=== PATIENT | female | born 1965 | race Caucasian/White ===

== ENCOUNTER → 2017-02-08 | Outpatient (REF) | payer OTHER ==
[2017-02-08 12:09] LABS: MEAN CORPUSCULAR HEMOGLOBIN 33.6 pg (27.0-33.0); MEAN CORPUSCULAR HGB CONC 33.4 g/dl (32.0-36.5); MEAN CORPUSCULAR VOLUME 100.8 fl (80.0-96.0); RED CELL DISTRIBUTION WIDTH 14.6 % (11.5-14.5); WHITE BLOOD COUNT 5.3 K/mm3 (4.0-10.0)
[2017-02-08 14:33] LABS: ALBUMIN 3.3 GM/DL (3.2-5.2); ALBUMIN/GLOBULIN RATIO 0.83 (1.00-1.93); ALKALINE PHOSPHATASE 90 U/L (45-117); ALT/SGPT 35 U/L (12-78); ANION GAP 7 MEQ/L (8-16); AST/SGOT 36 U/L (15-37); BILIRUBIN,TOTAL 0.4 MG/DL (0.2-1.0); BLOOD UREA NITROGEN 12 MG/DL (7-18); CALCIUM LEVEL 8.5 MG/DL (8.5-10.1); CARBON DIOXIDE LEVEL 23 MEQ/L (21-32); CHLORIDE LEVEL 107 MEQ/L (98-107); CHOLESTEROL LEVEL 183 MG/DL (<200); CREATININE FOR GFR 0.83 MG/DL (0.55-1.02); GLOMERULAR FILTRATION RATE > 60.0 (>51); GLUCOSE, FASTING 94 MG/DL (70-105); PERCENT SATURATION 7.5 % (13.2-37.4); POTASSIUM SERUM 4.2 MEQ/L (3.5-5.1); SODIUM LEVEL 137 MEQ/L (136-145); TOTAL IRON BINDING CAPACITY 416 UG/DL (250-450); TOTAL PROTEIN 7.3 GM/DL (6.4-8.2); TRIGLYCERIDES LEVEL 100 MG/DL (<150)
== END ==
LOC: M LABDRAW1 10:56
PROVIDERS: ATTEND Family Medicine
DX: R53.83 Other fatigue (principal); I10 Essential (primary) hypertension

== ENCOUNTER → 2020-11-05 | Outpatient (CLI) | payer BC, OTHER ==
[~2020-11-05] MED LIST: FAMO1TAB11 PO; LEVO125T4 PO; OMEP-218 PO; ONDA4TAB6 PO
[2020-11-05 18:38] LABS: BASO # 0.1 10^3/uL (0.0-0.2); BASO % 0.8 % (0.0-1.0); EOS # 0.1 10^3/uL (0.0-0.5); EOS % 0.6 % (0.0-3.0); HEMATOCRIT 41.4 % (36.0-47.0); HEMOGLOBIN 13.8 g/dl (12.0-15.5); LYMPH # 1.6 10^3/uL (1.5-5.0); LYMPH % 17.3 % (24.0-44.0); MEAN CORPUSCULAR HGB CONC 33.3 g/dl (32.0-36.5); MEAN CORPUSCULAR VOLUME 105.1 fl (80.0-96.0); MONO # 0.7 10^3/uL (0.0-0.8); MONO % 7.4 % (2.0-8.0); NEUTROPHILS # 6.8 10^3/uL (1.5-8.5); NEUTROPHILS % 73.6 % (36.0-66.0); PLATELET COUNT, AUTOMATED 351 10^3/uL (150-450); RED BLOOD COUNT 3.94 10^6/uL (4.00-5.40)
[2020-11-05 19:05] LABS: ALBUMIN 4.3 GM/DL (3.2-5.2); ALT/SGPT 33 U/L (12-78); AMYLASE 53 U/L (25-115); BILIRUBIN,TOTAL 1.3 MG/DL (0.2-1.0); BLOOD UREA NITROGEN 16 MG/DL (7-18); CALCIUM LEVEL 10.2 MG/DL (8.5-10.1); CARBON DIOXIDE LEVEL 28 MEQ/L (21-32); CHLORIDE LEVEL 98 MEQ/L (98-107); CREATININE FOR GFR 0.99 MG/DL (0.55-1.30); GLOMERULAR FILTRATION RATE > 60.0 (>51); GLUCOSE, FASTING 105 MG/DL (70-100); LIPASE 226 U/L (73-393); POTASSIUM SERUM 3.9 MEQ/L (3.5-5.1); SODIUM LEVEL 134 MEQ/L (136-145); TOTAL PROTEIN 8.4 GM/DL (6.4-8.2)
[2020-11-05 19:31] LABS: HEPATITIS B SURFACE ANTIGEN NEGATIVE (NEGATIVE)
[2020-11-05 19:53] LABS: HEPATITIS B CORE ANTIBODY IGM NEGATIVE (NEGATIVE); HEPATITIS C VIRUS ABY INDEX < 0.0 INDEX (<0.8)
[2020-11-05 19:56] LABS: HEPATITIS A ANTIBODY IGM NEGATIVE (NEGATIVE)
--- NOTE | 2020-11-06 03:32 | REP ---
INDICATION: GENERALIZED ABDOMINAL PAIN, LAB 1ST COMPARISON: None. TECHNIQUE: Upright view of the chest with supine and upright views of the abdomen and pelvis. FINDINGS: Frontal upright view of the chest demonstrates no acute cardiopulmonary process or free air below the diaphragm to suspect pneumoperitoneum. Supine and upright views of the abdomen and pelvis demonstrate nonspecific bowel gas pattern without obstruction or perforation. No organomegaly. No abnormal calcifications. Skeletal structures normal for age. IMPRESSION: Nonspecific bowel gas pattern. <Electronically signed by Adarsh Denson > 11/06/20 032
[2020-11-06 07:02] LABS: WHITE BLOOD COUNT 9.3 10^3/uL (4.0-10.0)
== END ==
LOC: M LAB 17:46
PROVIDERS: ATTEND Physician Assistant
DX: R10.84 Generalized abdominal pain (principal)

== ENCOUNTER 2020-11-06 21:02 | Inpatient (IN) | payer BC, OTHER ==
[~2020-11-06] VITALS: Ht 167.6 cm; Wt 92.9 kg
[2020-11-06] MEDS ORDERED: FAMO1TAB11 PO (21:20)
[2020-11-06] MEDS ORDERED: OMEP-218 PO (21:20)
[2020-11-06] MEDS ORDERED: LEVO125T4 PO (21:20)
[2020-11-06] MEDS ORDERED: ONDA4TAB6 PO (21:20)
[2020-11-06] MEDS ORDERED: METOCLOPRAMIDE INJ 10MG/2ML VIAL (J2765 PER 1) IV ONE (22:30)
[2020-11-06] MEDS ORDERED: NS 1,000 ML IV ONE (22:30)
[2020-11-06 22:43] LABS: BASO # 0.1 10^3/uL (0.0-0.2); BASO % 0.4 % (0.0-1.0); HEMATOCRIT 45.2 % (36.0-47.0); HEMOGLOBIN 15.5 g/dl (12.0-15.5); LYMPH # 1.4 10^3/uL (1.5-5.0); MEAN CORPUSCULAR HEMOGLOBIN 34.8 pg (27.0-33.0); MEAN CORPUSCULAR HGB CONC 34.3 g/dl (32.0-36.5); MEAN CORPUSCULAR VOLUME 101.3 fl (80.0-96.0); MONO # 0.8 10^3/uL (0.0-0.8); MONO % 6.4 % (2.0-8.0); NEUTROPHILS # 10.3 10^3/uL (1.5-8.5); NEUTROPHILS % 81.7 % (36.0-66.0); PLATELET COUNT, AUTOMATED 468 10^3/uL (150-450); RED BLOOD COUNT 4.46 10^6/uL (4.00-5.40); WHITE BLOOD COUNT 12.6 10^3/uL (4.0-10.0)
[2020-11-06 23:31] LABS: ALBUMIN 4.8 GM/DL (3.2-5.2); BILIRUBIN,DIRECT 0.4 MG/DL (0.0-0.2); BILIRUBIN,TOTAL 1.5 MG/DL (0.2-1.0); CALCIUM LEVEL 10.5 MG/DL (8.5-10.1); CREATININE FOR GFR 2.64 MG/DL (0.55-1.30); GLOMERULAR FILTRATION RATE 20.1 (>51); POTASSIUM SERUM 3.6 MEQ/L (3.5-5.1); TOTAL PROTEIN 9.6 GM/DL (6.4-8.2)
--- NOTE | 2020-11-07 01:16 | REPVR ---
PROCEDURE INFORMATION: Exam: CT Abdomen And Pelvis Without Contrast Exam date and time: 11/07/2020 12:17 AM Age: 55 years old Clinical indication: Nausea and vomiting; Additional info: Acute renal failure TECHNIQUE: Imaging protocol: Computed tomography of the abdomen and pelvis without contrast. Radiation optimization: All CT scans at this facility use at least one of these dose optimization techniques: automated exposure control; mA and/or kV adjustment per patient size (includes targeted exams where dose is matched to clinical indication); or iterative reconstruction. COMPARISON: CR Abdomen,Flat Upright,PA CHEST 11/05/2020 6:17 PM FINDINGS: Liver: Normal. No mass. Gallbladder and bile ducts: Normal. No calcified stones. No ductal dilation. Pancreas: Retroperitoneal and peripancreatic edema in the region of the pancreatic head. Remainder of the pancreas is unremarkable. No pancreatic mass is identified. No pancreatic duct dilation or peripancreatic fluid collection. Spleen: Normal. No splenomegaly. Adrenal glands: Normal. No mass. Kidneys and ureters: Normal. No hydronephrosis. Stomach and bowel: The 2nd and 3rd portions of the duodenum are dilated and thick walled with surrounding retroperitoneal edema. The stomach is unremarkable. The distal duodenum and small bowel are unremarkable. Colon is unremarkable. No bowel obstruction. Appendix: No evidence of appendicitis. Intraperitoneal space: Unremarkable. No free air. No significant fluid collection. Vasculature: Unremarkable. No abdominal aortic aneurysm. Lymph nodes: Unremarkable. No enlarged lymph nodes. Urinary bladder: Unremarkable as visualized. Reproductive: Unremarkable as visualized. Bones/joints: Unremarkable. No acute fracture. Soft tissues: Unremarkable. IMPRESSION: 1. Dilated thick-walled duodenum. Finding may be due to an infectious or inflammatory duodenitis, duodenal diverticulitis, or underlying pathology. Evaluation is limited without intraluminal contrast. Follow-up CT with enteric contrast may be beneficial. 2. No bowel obstruction. 3. Peripancreatic edema may be related to acute pancreatitis versus inflammation secondary to the adjacent duodenum. Electronically signed by: Landon Rosario On 11/07/2020 01:16:38 AM
--- NOTE | 2020-11-07 03:02 | HPEPDOC ---
[facility] Medical History & Physical Date of Admission Nov 07, 2020 Date of Service: Nov 07, 2020 History and Physical CHIEF COMPLAINT: Nausea and vomiting HISTORY OF PRESENT ILLNESS: 55-year-old female history of hypothyroidism started having symptoms of nausea vomiting and diarrhea on Wednesday. She went to the urgent care yesterday blood work was unrevealing and she was given oral Zofran. She was unable to keep it down her nausea and vomiting persisted and were associated with poor appetite including poor fluid intake. She tells me that her diarrhea only lasted one day however her nausea and vomiting have not improved. She has no sick contacts at home. She presented to the emergency department due to her intractable nausea and vomiting. In the emergency department CT of the abdomen/pelvis shows inflammation consistent with viral enteritis. She was also found to have acute kidney injury suspected to be from dehydration. Patient will be admitted to the medical service for management of intractable nausea and vomiting IV fluid hydration as well as acute kidney injury. On review of systems patient tells me she doesn't have any chest pain or shortness of breath. She denies any abdominal pain however she does endorse a history of gassiness but this is not new. She denies dysuria. Denies actively having diarrhea. PAST MEDICAL/SURGICAL HISTORY: Hypothyroidism GERD History of D&C SOCIAL HISTORY: Denies alcohol use Daily smoker smokes approximately half a pack per day. Denies illicit drug use FAMILY HISTORY: Reviewed and none contributory to this admission ALLERGIES: Please see below. REVIEW OF SYSTEMS: 10 point review of systems complete all negative otherwise stated in HPI HOME MEDICATIONS: Please see below. PHYSICAL EXAMINATION: Constitutional: Awake and alert, in no apparent distress ENT: Sclera are clear. Mucosa is moist. Respiratory: Lungs CTA bilaterally. No respiratory distress. Cardiovascular: RRR S1 and S2 are normal Gastrointestinal: Abdomen is soft, non distended, non tender, BS present. Musculoskeletal: No lower extremity edema. Neurologic: No focal neurological deficit. Mental Status: A&O x3, normal affect Skin: Warm, dry LABORATORY DATA: See below. IMAGING: CT Abdomen/pelvis w/o contrast 11/07/20 IMPRESSION: 1. Dilated thick-walled duodenum. Finding may be due to an infectious or inflammatory duodenitis, duodenal diverticulitis, or underlying pathology. Evaluation is limited without intraluminal contrast. Follow-up CT with enteric contrast may be beneficial. 2. No bowel obstruction. 3. Peripancreatic edema may be related to acute pancreatitis versus inflammation secondary to the adjacent duodenum. MICROBIOLOGY: Please see below. ASSESSMENT/PLAN 55-year-old female history of hypothyroidism Speck said to have viral gastroenteritis with intractable nausea and vomiting on to have an LENIN. Admitted for IV fluid hydration and N/V control as well as management of LENIN. # Suspected Viral Gastroenteritis - Mostly likely diagnosis consists of symptoms of nausea, vomiting and diarrhea. - Abdominal CT shows: "Dilated thick-walled duodenum. May be due to an infectious or inflammatory duodenitis, duodenal diverticulitis. Peripancreatic edema may be related to acute pancreatitis versus inflammation secondary to the adjacent duodenum." - Lipase 318 upper limits of normal in the absence of abdominal pain - Zofran PRN n/v, Reglan scheduled. protonix IV - Fu GI panel - IVFs NS - Diet as tolerated #LENIN: Cr 2.64. Likely prerenal secondary to dehydration and GI loss. Fu FeNa. IVFs NS. Trend BMP. Avoid nephrotoxins. # Hypothyroidism: resume Synthroid. # GERD: protonix. # DVT prophylaxis: Heparin A Yousef Hospitalist Vital Signs Vital Signs Date Time Temp Pulse Resp B/P (MAP) Pulse Ox O2 Delivery O2 Flow Rate FiO2 11/07/20 02:17 97 94 11/07/20 02:15 127/92 (104) 11/06/20 21:03 96.2 20 Room Air Laboratory Data Labs 24H Laboratory Tests 2 11/06/20 22:37: Immature Granulocyte % (Auto) 0.5, Neutrophils (%) (Auto) 81.7H, Lymphocytes (%) (Auto) 11.0L, Monocytes (%) (Auto) 6.4, Eosinophils (%) (Auto) 0.0, Basophils (%) (Auto) 0.4, Neutrophils # (Auto) 10.3H, Lymphocytes # (Auto) 1.4L, Monocytes # (Auto) 0.8, Eosinophils # (Auto) 0.0, Basophils # (Auto) 0.1, Nucleated Red Blood Cells % (auto) 0.0, Anion Gap 18H, Glomerular Filtration Rate 20.1L, Calcium Level 10.5H, Total Bilirubin 1.5H, Direct Bilirubin 0.4H, Aspartate Amino Transf (AST/SGOT) 33, Alanine Aminotransferase (ALT/SGPT) 34, Alkaline Phosphatase 149H, Total Protein 9.6H, Albumin 4.8, Albumin/Globulin Ratio 1.0L, Lipase 318 11/07/20 00:48: Urine Color KADY, Urine Appearance TURBIDH, Urine pH 5.0, Urine Specific Gravit y 1.021, Urine Protein 2+H, Urine Glucose (UA) NEGATIVE, Urine Ketones TRACEH, Urine Blood 1+H, Urine Nitrite NEGATIVE, Urine Bilirubin 1+H, Urine Urobilinogen 2.0H, Urine Leukocyte Esterase NEGATIVE, Urine WBC (Auto) 8H, Urine RBC (Auto) 6H, Urine Hyaline Casts (Auto) 62, Urine Bacteria (Auto) 2+H, Urine Squamous Epithelial Cells 10, Urine Mucus (Auto) SMALL, Urine Sperm (Auto) CBC/BMP Laboratory Tests 11/06/20 22:37 Microbiology Microbiology 11/06/20 Respiratory Virus Panel (PCR) ([facility]) - Final, Complete Home Medications Scheduled Famotidine (Famotidine) 20 Mg Tablet, 20 MG PO DAILY Levothyroxine Sodium (Levothyroxine Sodium) 125 Mcg Tablet, 125 MCG PO DAILY Omeprazole (Omeprazole) 20 Mg Capsule.dr, 20 MG PO BID Scheduled PRN Ondansetron (Ondansetron Odt) 4 Mg Tab.rapdis, 4 MG PO Q6H PRN for NAUSEA OR VOMITING Allergies Coded Allergies: No Known Allergies (Unverified , 11/06/20) A-FIB/CHADSVASC A-FIB History Current/History of A-Fib/PAF?: No KLAUSSERD Rick MD Nov 07, 2020 03:01
[2020-11-07] MEDS ORDERED: MOM 30ML SUSPENSION UDC PO PRN (03:15)
[2020-11-07] MEDS ORDERED: ACETAMINOPHEN TAB 650MG DOSE (2X325MG) PO PRN (03:15)
[2020-11-07] MEDS ORDERED: MAALOX 30 ML SUSP *UDC PO PRN (03:15)
[2020-11-07] MEDS ORDERED: LORazepam 2 MG TAB PO PRN (03:40)
[2020-11-07] MEDS: NS 1,000 ML IV SCH ×2 (04:00→13:30)
[2020-11-07] MEDS: THIAMINE 100 MG TAB PO SCH ×2 (04:00→21:36)
[2020-11-07] MEDS: METOCLOPRAMIDE INJ 10MG/2ML VIAL (J2765 PER 1) IV SCH ×2 (06:38→23:28)
[2020-11-07] MEDS ORDERED: PANTOPRAZOLE 40MG VIAL (C9113 PER 1) IV SCH (09:00)
[2020-11-07] MEDS ORDERED: DOCUSATE SODIUM 100MG CAPSULE PO SCH (09:00)
[2020-11-07] MEDS: MULTIVITAMINS/MINERALS THERAP 1 TAB PO SCH (09:00)
[2020-11-07 09:20] VITALS: BP 121/87
[2020-11-07 09:53] LABS: HEMATOCRIT 42.4 % (36.0-47.0); HEMOGLOBIN 14.5 g/dl (12.0-15.5); MEAN CORPUSCULAR HEMOGLOBIN 34.3 pg (27.0-33.0); MEAN CORPUSCULAR HGB CONC 34.2 g/dl (32.0-36.5); MEAN CORPUSCULAR VOLUME 100.2 fl (80.0-96.0); PLATELET COUNT, AUTOMATED 396 10^3/uL (150-450); RED BLOOD COUNT 4.23 10^6/uL (4.00-5.40); WHITE BLOOD COUNT 11.2 10^3/uL (4.0-10.0)
[2020-11-07 10:00] VITALS: BP 121/87
[2020-11-07 10:34] LABS: CREATININE FOR GFR 3.15 MG/DL (0.55-1.30); GLOMERULAR FILTRATION RATE 16.4 (>51); POTASSIUM SERUM 3.7 MEQ/L (3.5-5.1)
[2020-11-07] MEDS: LEVOTHYROXINE 100MCG (0.1MG) VIAL IV SCH (10:46)
[2020-11-07] MEDS: HEPARIN SOD (PORCINE) 5000UNITS/ML 1ML VIAL/SYRINGE SC SCH ×2 (10:47→21:36)
[2020-11-07] MEDS: FOLIC ACID 1 MG TAB PO SCH (12:06)
[2020-11-07] MEDS: ONDANSETRON 4MG/2ML VIAL IV PRN ×2 (13:30→20:18)
[2020-11-07] MEDS ORDERED: NS 1,000 ML IV ONE (13:45)
[2020-11-07 14:00] VITALS: BP 121/87
--- NOTE | 2020-11-07 17:57 | IPNPDOC ---
Subjective Date Seen The patient was seen on 11/07/20. Subjective Chief Complaint/HPI Continues to have nausea and vomiting. No abdominal pain or diarrhea. Objective Physical Examination General Exam: Positive: Alert, Cooperative, No Acute Distress Eye Exam: Positive: PERRLA, Conjunctiva & lids normal, EOMI; Negative: Sclera icteric ENT Exam: Positive: Atraumatic, Mucous membr. moist/pink, Pharynx Normal Neck Exam: Positive: Supple; Negative: JVD, thyromegaly Chest Exam: Positive: Clear to auscultation, Normal air movement Heart Exam: Positive: Rate Normal, Regular Rhythm, Normal S1, Normal S2; Negative: Murmurs, Rubs Abdomen Exam: Positive: BS Hyperactive, Soft; Negative: Tenderness, Hepatospenomegaly Extremity Exam: Negative: Clubbing, Cyanosis, Edema Skin Exam: Positive: Nl turgor and temperature; Negative: Rash, Breakdown Neuro Exam: Positive: Normal Speech, Strength at 5/5 X4 ext, Normal Tone Psych Exam: Positive: Memory Intact, Oriented x 3 Assessment /Plan Assessment 55-year-old female history of hypothyroidism, daily alcohol use presented to ED with nausea, vomiting for 4 days unable to keep anything down. No diarrhea. In fact she is contipatedCT Abdomen/pelvis w/o contrast 11/07/20 showed Dilated thick-walled duodenum. Finding may be due to an infectious or inflammatory duodenitis, duodenal diverticulitis, or underlying pathology. Evaluation is limited without intraluminal contrast. Follow-up CT with enteric contrast may be beneficial. No bowel obstruction. Peripancreatic edema may be related to acute pancreatitis versus inflammation secondary to the adjacent duodenum. She was found to have dehydration, LENIN. She is felt to have viral gastroenteritis with dehydration and LENIN. Suspected Viral Gastroenteritis Vs Acute gastritis continue IVF. diet as tolerated, zofran and metoclopramide PPI bid. LENIN Likely prerenal secondary to dehydration and GI loss. continue IVF. Hypothyroidism Synthroid. GERD protonix. DVT prophylaxis Heparin Plan/VTE VTE Prophylaxis Ordered?: Yes VS, I&O, 24H, Fishbone Vital Signs/I&O Vital Signs Date Time Temp Pulse Resp B/P (MAP) Pulse Ox O2 Delivery O2 Flow Rate FiO2 11/07/20 09:20 98.0 94 18 121/87 (98) 98 Room Air Laboratory Data 24H LABS Laboratory Tests 2 11/06/20 22:37: Immature Granulocyte % (Auto) 0.5, Neutrophils (%) (Auto) 81.7H, Lymphocytes (%) (Auto) 11.0L, Monocytes (%) (Auto) 6.4, Eosinophils (%) (Auto) 0.0, Basophils (%) (Auto) 0.4, Neutrophils # (Auto) 10.3H, Lymphocytes # (Auto) 1.4L, Monocytes # (Auto) 0.8, Eosinophils # (Auto) 0.0, Basophils # (Auto) 0.1, Nucleated Red Blood Cells % (auto) 0.0, Anion Gap 18H, Glomerular Filtration Rate 20.1L, Calcium Level 10.5H, Total Bilirubin 1.5H, Direct Bilirubin 0.4H, Aspartate Amino Transf (AST/SGOT) 33, Alanine Aminotransferase (ALT/SGPT) 34, Alkaline Phosphatase 149H, Total Protein 9.6H, Albumin 4.8, Albumin/Globulin Ratio 1.0L, Lipase 318 11/07/20 00:48: Urine Color KADY, Urine Appearance TURBIDH, Urine pH 5.0, Urine Specific Lewis 1.021, Urine Protein 2+H, Urine Glucose (UA) NEGATIVE, Urine Ketones TRACEH, Urine Blood 1+H, Urine Nitrite NEGATIVE, Urine Bilirubin 1+H, Urine Urobilinogen 2.0H, Urine Leukocyte Esterase NEGATIVE, Urine WBC (Auto) 8H, Urine RBC (Auto) 6H, Urine Hyaline Casts (Auto) 62, Urine Bacteria (Auto) 2+H, Urine Squamous Epithelial Cells 10, Urine Mucus (Auto) SMALL, Urine Sperm (Auto) 11/07/20 09:36: Nucleated Red Blood Cells % (auto) 0.0, Anion Gap 15, Glomerular Filtration Rate 16.4L, Calcium Level 10.0, Thyroid Stimulating Hormone (TSH) 35.000H CBC/BMP Laboratory Tests 11/06/20 22:37 11/07/20 09:36 Microbiology Microbiology 11/06/20 Respiratory Virus Panel (PCR) ([facility]) - Final, Complete JEAN CARLOS ACEVEDO MD Nov 07, 2020 12:46
[2020-11-07 19:31] VITALS: BP 121/87
[2020-11-07] MEDS: PANTOPRAZOLE 40MG VIAL (C9113 PER 1) IV SCH (21:36)
[2020-11-07 22:00] VITALS: BP 116/74
[2020-11-08] MEDS: NS 1,000 ML IV SCH ×2 (02:09→09:35)
[2020-11-08 06:00] VITALS: BP 118/76
[2020-11-08] MEDS: METOCLOPRAMIDE INJ 10MG/2ML VIAL (J2765 PER 1) IV SCH (06:41)
[2020-11-08 08:05] VITALS: BP 120/80
[2020-11-08 08:36] LABS: BASO % 0.5 % (0.0-1.0); EOS % 0.3 % (0.0-3.0); HEMATOCRIT 35.7 % (36.0-47.0); HEMOGLOBIN 11.6 g/dl (12.0-15.5); LYMPH # 1.2 10^3/uL (1.5-5.0); LYMPH % 15.8 % (24.0-44.0); MEAN CORPUSCULAR HEMOGLOBIN 34.3 pg (27.0-33.0); MEAN CORPUSCULAR HGB CONC 32.5 g/dl (32.0-36.5); MEAN CORPUSCULAR VOLUME 105.6 fl (80.0-96.0); MONO # 0.7 10^3/uL (0.0-0.8); MONO % 9.1 % (2.0-8.0); NEUTROPHILS # 5.8 10^3/uL (1.5-8.5); NEUTROPHILS % 73.9 % (36.0-66.0); PLATELET COUNT, AUTOMATED 298 10^3/uL (150-450); RED BLOOD COUNT 3.38 10^6/uL (4.00-5.40); WHITE BLOOD COUNT 7.8 10^3/uL (4.0-10.0)
[2020-11-08 08:42] LABS: CALCIUM LEVEL 8.9 MG/DL (8.5-10.1); CREATININE FOR GFR 1.11 MG/DL (0.55-1.30); GLOMERULAR FILTRATION RATE 54.5 (>51); POTASSIUM SERUM 3.5 MEQ/L (3.5-5.1)
[2020-11-08] MEDS: HEPARIN SOD (PORCINE) 5000UNITS/ML 1ML VIAL/SYRINGE SC SCH ×2 (09:35→23:01)
[2020-11-08] MEDS: THIAMINE 100 MG TAB PO SCH ×2 (09:35→20:18)
[2020-11-08] MEDS: MULTIVITAMINS/MINERALS THERAP 1 TAB PO SCH (09:35)
[2020-11-08] MEDS: FOLIC ACID 1 MG TAB PO SCH (09:35)
[2020-11-08] MEDS: PANTOPRAZOLE 40MG VIAL (C9113 PER 1) IV SCH ×2 (09:36→23:01)
[2020-11-08] MEDS: LEVOTHYROXINE 100MCG (0.1MG) VIAL IV SCH (09:36)
--- NOTE | 2020-11-08 09:53 | IPNPDOC ---
Subjective Date Seen The patient was seen on 11/08/20. Subjective Chief Complaint/HPI continues to be nauseous still can only take few sips of liquids. Had vomiting last night. No abdominal pain . No bowel movement yet. Objective Physical Examination General Exam: Positive: Alert, Cooperative, No Acute Distress Eye Exam: Positive: PERRLA, Conjunctiva & lids normal, EOMI; Negative: Sclera icteric ENT Exam: Positive: Atraumatic, Mucous membr. moist/pink, Pharynx Normal Neck Exam: Positive: Supple; Negative: JVD, thyromegaly Chest Exam: Positive: Clear to auscultation, Normal air movement Heart Exam: Positive: Rate Normal, Regular Rhythm, Normal S1, Normal S2; Negative: Murmurs, Rubs Abdomen Exam: Positive: Normal bowel sounds, Soft; Negative: Tenderness, Hepatospenomegaly Extremity Exam: Negative: Clubbing, Cyanosis, Edema Neuro Exam: Positive: Normal Speech, Strength at 5/5 X4 ext, Normal Tone Psych Exam: Positive: Memory Intact, Oriented x 3 Assessment /Plan Assessment 55-year-old female history of hypothyroidism, daily alcohol use presented to ED with nausea, vomiting for 4 days unable to keep anything down. No diarrhea. In fact she is contipatedCT Abdomen/pelvis w/o contrast 11/07/20 showed Dilated thick-walled duodenum. Finding may be due to an infectious or inflammatory duodenitis, duodenal diverticulitis, or underlying pathology. Evaluation is limited without intraluminal contrast. Follow-up CT with enteric contrast may be beneficial. No bowel obstruction. Peripancreatic edema may be related to acute pancreatitis versus inflammation secondary to the adjacent duodenum. She was found to have dehydration, LENIN. She is felt to have viral gastroenteritis with dehydration and LENIN. Suspected Viral Gastroenteritis Vs Acute gastritis VS duodenal obstruction. CT shows dilated duodenum with duodenal wall thickening. NPO diet, zofran and compazine consult GI. will likely need EGD. PPI bid. IVF. FS [id number]. LENIN Likely prerenal secondary to dehydration and GI loss. resolved Hypothyroidism Synthroid. GERD protonix. DVT prophylaxis Heparin Plan/VTE VTE Prophylaxis Ordered?: Yes VS, I&O, 24H, Fishbone Vital Signs/I&O Vital Signs Date Time Temp Pulse Resp B/P (MAP) Pulse Ox O2 Delivery O2 Flow Rate FiO2 11/08/20 06:00 97.4 76 17 118/76 (90) 94 Room Air I&O- Last 24 Hours up to 6 AM0 11/08/20 06:00 Intake Total 6190 ml Output Total 1850 ml Balance 4340 ml Laboratory Data 24H LABS Laboratory Tests 2 11/07/20 19:13: Urine Random Creatinine 337.0, Urine Random Total Protein 47.0H 11/08/20 08:02: Immature Granulocyte % (Auto) 0.4, Neutrophils (%) (Auto) 73.9H, Lymphocytes (%) (Auto) 15.8L, Monocytes (%) (Auto) 9.1H, Eosinophils (%) (Auto) 0.3, Basophils (%) (Auto) 0.5, Neutrophils # (Auto) 5.8, Lymphocytes # (Auto) 1.2L, Monocytes # (Auto) 0.7, Eosinophils # (Auto) 0.0, Basophils # (Auto) 0.0, Nucleated Red Blood Cells % (auto) 0.0, Anion Gap 7L, Glomerular Filtration Rate 54.5, Calcium Level 8.9 CBC/BMP Laboratory Tests 11/08/20 08:02 Microbiology Microbiology 11/06/20 Respiratory Virus Panel (PCR) ([facility]) - Final, Complete JEAN CARLOS ACEVEDO MD Nov 08, 2020 09:45
[2020-11-08] MEDS ORDERED: ONDANSETRON 4 MG ORAL DISINTEGRATING TAB SL SCH (12:00)
[2020-11-08] MEDS ORDERED: METOCLOPRAMIDE INJ 10MG/2ML VIAL (J2765 PER 1) IV PRN (13:00)
[2020-11-08 14:00] VITALS: BP 124/77
[2020-11-08] MEDS ORDERED: BISACODYL 10 MG SUPP PR ONE (16:35)
[2020-11-08] MEDS: ONDANSETRON 4MG/2ML VIAL IV SCH (18:08)
[2020-11-08 22:00] VITALS: BP 129/76
[2020-11-08] MEDS: PROCHLORPERAZINE 10MG/2ML VIAL (J0780 PER 1) IV PRN (23:01)
[2020-11-08] MEDS ORDERED: NS 500 ML IV ONE (23:10)
[2020-11-09] MEDS: ONDANSETRON 4MG/2ML VIAL IV SCH ×5 (00:46→17:20)
[2020-11-09 06:00] VITALS: BP 110/72
[2020-11-09 06:04] LABS: BASO % 0.3 % (0.0-1.0); EOS % 0.3 % (0.0-3.0); HEMATOCRIT 36.5 % (36.0-47.0); HEMOGLOBIN 11.9 g/dl (12.0-15.5); LYMPH # 1.2 10^3/uL (1.5-5.0); LYMPH % 19.3 % (24.0-44.0); MEAN CORPUSCULAR HEMOGLOBIN 34.1 pg (27.0-33.0); MEAN CORPUSCULAR HGB CONC 32.6 g/dl (32.0-36.5); MEAN CORPUSCULAR VOLUME 104.6 fl (80.0-96.0); MONO # 0.6 10^3/uL (0.0-0.8); MONO % 10.2 % (2.0-8.0); NEUTROPHILS # 4.2 10^3/uL (1.5-8.5); NEUTROPHILS % 69.6 % (36.0-66.0); PLATELET COUNT, AUTOMATED 290 10^3/uL (150-450); RED BLOOD COUNT 3.49 10^6/uL (4.00-5.40); WHITE BLOOD COUNT 6.1 10^3/uL (4.0-10.0)
[2020-11-09 06:24] LABS: BLOOD UREA NITROGEN 24 MG/DL (7-18); CALCIUM LEVEL 9.2 MG/DL (8.5-10.1); CARBON DIOXIDE LEVEL 27 MEQ/L (21-32); CHLORIDE LEVEL 105 MEQ/L (98-107); CREATININE FOR GFR 0.81 MG/DL (0.55-1.30); GLOMERULAR FILTRATION RATE > 60.0 (>51); GLUCOSE, FASTING 89 MG/DL (70-100); POTASSIUM SERUM 3.2 MEQ/L (3.5-5.1); SODIUM LEVEL 137 MEQ/L (136-145)
--- NOTE | 2020-11-09 07:49 | IPNPDOC ---
Subjective Date Seen The patient was seen on 11/09/20. Subjective Chief Complaint/HPI Has some nausea intermittently. Had a vomiting last night. Has some crampy abdominal pain intermittently. Passing small amount of flatus . No bowel movement. Objective Physical Examination General Exam: Positive: Alert, Cooperative, No Acute Distress Eye Exam: Positive: PERRLA, Conjunctiva & lids normal, EOMI; Negative: Sclera icteric ENT Exam: Positive: Atraumatic, Mucous membr. moist/pink, Pharynx Normal Neck Exam: Positive: Supple; Negative: JVD, thyromegaly Chest Exam: Positive: Clear to auscultation, Normal air movement Heart Exam: Positive: Rate Normal, Regular Rhythm, Normal S1, Normal S2; Negative: Murmurs, Rubs Abdomen Exam: Positive: BS Hypoactive, Soft; Negative: Tenderness, Hepatospenomegaly Extremity Exam: Negative: Clubbing, Cyanosis, Edema Neuro Exam: Positive: Normal Speech, Strength at 5/5 X4 ext, Normal Tone Psych Exam: Positive: Memory Intact, Oriented x 3 Assessment /Plan Assessment 55-year-old female history of hypothyroidism, daily alcohol use presented to ED with nausea, vomiting for 4 days unable to keep anything down. No diarrhea. In fact she is contipatedCT Abdomen/pelvis w/o contrast 11/07/20 showed Dilated thick-walled duodenum. Finding may be due to an infectious or inflammatory duodenitis, duodenal diverticulitis, or underlying pathology. Evaluation is limited without intraluminal contrast. Follow-up CT with enteric contrast may be beneficial. No bowel obstruction. Peripancreatic edema may be related to acute pancreatitis versus inflammation secondary to the adjacent duodenum. She was found to have dehydration, LENIN. She was admitted for viral gastroenteritis with dehydration and LENIN. Her inflammation is localized at the Duodenum with duodenal wall thickening so i think she could have a duodenal ulcer with stricture vs a Duodenal mass. Have consulted GI for possible EGD. Duodenitis VS duodenal obstruction with a mass vs duodenal stricture CT shows dilated duodenum with duodenal wall thickening. NPO diet, zofran and compazine consulted GI. will likely need EGD. PPI bid. IVF. FS [id number]. Acute pancreatitis as seen in CT abdomen though lipase on admission was normal . patient came several days after the starting of symptoms. does have h/o significant alcohol intake will continue with IVF, npo, antiemetics. hypokalemia will change IVF with K addition to it. LENIN Likely prerenal secondary to dehydration and GI loss. resolved Hypothyroidism TSH remains elevated. her PMD is adjusting the meds. Will continue with home meds for now. Synthroid. GERD protonix. Significant Alcohol use 2 drinks during weak days and 4 to 6 drinks on lew wekk ends. Mixed drinks. Did not have any signs of alcohol withdrawal CIWA discontinued. DVT prophylaxis Heparin Plan/VTE VTE Prophylaxis Ordered?: Yes VS, I&O, 24H, Fishbone Vital Signs/I&O Vital Signs Date Time Temp Pulse Resp B/P (MAP) Pulse Ox O2 Delivery O2 Flow Rate FiO2 11/09/20 06:00 97.4 83 19 110/72 (85) 97 Room Air I&O- Last 24 Hours up to 6 AM 11/09/20 06:00 Intake Total 1295 ml Output Total 1200 ml Balance 95 ml Laboratory Data 24H LABS Laboratory Tests 2 11/08/20 08:02: Immature Granulocyte % (Auto) 0.4, Neutrophils (%) (Auto) 73.9H, Lymphocytes (%) (Auto) 15.8L, Monocytes (%) (Auto) 9.1H, Eosinophils (%) (Auto) 0.3, Basophils (%) (Auto) 0.5, Neutrophils # (Auto) 5.8, Lymphocytes # (Auto) 1.2L, Monocytes # (Auto) 0.7, Eosinophils # (Auto) 0.0, Basophils # (Auto) 0.0, Nucleated Red Blood Cells % (auto) 0.0, Anion Gap 7L, Glomerular Filtration Rate 54.5, Calcium Level 8.9 11/09/20 05:34: Immature Granulocyte % (Auto) 0.3, Neutrophils (%) (Auto) 69.6H, Lymphocytes (%) (Auto) 19.3L, Monocytes (%) (Auto) 10.2H, Eosinophils (%) (Auto) 0.3, Basophils (%) (Auto) 0.3, Neutrophils # (Auto) 4.2, Lymphocytes # (Auto) 1.2L, Monocytes # (Auto) 0.6, Eosinophils # (Auto) 0.0, Basophils # (Auto) 0.0, Nucleated Red Blood Cells % (auto) 0.0, Anion Gap 5L, Glomerular Filtration Rate > 60.0, Calcium Level 9.2 CBC/BMP Laboratory Tests 11/08/20 08:02 11/09/20 05:34 Microbiology Microbiology 11/06/20 Respiratory Virus Panel (PCR) ([facility]) - Final, Complete JEAN CARLOS ACEVEDO MD Nov 09, 2020 07:49
[2020-11-09] MEDS ORDERED: fentaNYL 100 MCG/2 ML INJECTION (J3010) As Ordered ONE (08:40)
[2020-11-09] MEDS: LEVOTHYROXINE 100MCG (0.1MG) VIAL IV SCH (09:16)
[2020-11-09] MEDS: PANTOPRAZOLE 40MG VIAL (C9113 PER 1) IV SCH ×2 (09:16→22:27)
[2020-11-09] MEDS: KCL 20MEQ IN D5/NS 1000ML 1,000 ML IV SCH (09:17)
[2020-11-09] MEDS ORDERED: propofoL 200 MG/20 ML VIAL As Ordered ONE (10:47)
--- NOTE | 2020-11-09 11:14 | ROOR ---
Patient Name: Rama Valderrama Procedure Date: 11/09/2020 9:59 AM Date of : 1965 Age: 55 Room: Main OR Gender: Female Note Status: Finalized Procedure: Upper GI endoscopy Indications: Abnormal CT of the GI tract Providers: Matthew Stevens MD Referring MD: 2. Inpatient 2. Inpatient, Jorgito Ritter Md Requesting Provider: Medicines: Monitored Anesthesia Care Complications: No immediate complications. Procedure: Pre-Anesthesia Assessment: - Prior to the procedure, a History and Physical was performed, and patient medications and allergies were reviewed. The patient is competent. The risks and benefits of the procedure and the sedation options and risks were discussed with the patient. All questions were answered and informed consent was obtained. Patient identification and proposed procedure were verified by the physician, the nurse and the anesthesiologist in the procedure room. Mental Status Examination: normal. Airway Examination: normal oropharyngeal airway and neck mobility. Respiratory Examination: clear to auscultation. CV Examination: normal. Prophylactic Antibiotics: The patient does not require prophylactic antibiotics. Prior Anticoagulants: The patient has taken no previous anticoagulant or antiplatelet agents. ASA Grade Assessment: II - A patient with mild systemic disease. After reviewing the risks and benefits, the patient was deemed in satisfactory condition to undergo the procedure. The anesthesia plan was to use monitored anesthesia care (MAC). Immediately prior to administration of medications, the patient was re-assessed for adequacy to receive sedatives. The heart rate, respiratory rate, oxygen saturations, blood pressure, adequacy of pulmonary ventilation, and response to care were monitored throughout the procedure. The physical status of the patient was re-assessed after the procedure. The Endoscope was introduced through the mouth, and advanced to the second part of duodenum. The Colonoscope was introduced through the mouth, and advanced to the fourth part of duodenum. The upper GI endoscopy was accomplished without difficulty. The patient tolerated the procedure well. Findings: LA Grade D (one or more mucosal breaks involving at least 75% of esophageal circumference) esophagitis with no bleeding was found in the lower third of the esophagus. A small hiatal hernia was present. Excessive fluid was found in the gastric fundus and in the gastric body. Fluid aspiration was performed. Gastric lumen appears distended. ( possible outflow limitation) An acquired extrinsic severe stenosis was found in the second portion of the duodenum and in the third portion of the duodenum and was traversed. ( this stenosis is traversed after changing regular EGD to Ultra thin scope). No mucoal ulceration noted. Impression: - LA Grade D reflux esophagitis. - Small hiatal hernia. - Excessive gastric fluid. Fluid aspiration performed. - Acquired duodenal stenosis. Recommendation: - Patient has a contact number available for emergencies. The signs and symptoms of potential delayed complications were discussed with the patient. Return to normal activities tomorrow. Written discharge instructions were provided to the patient. - Clear liquid diet. - Use sucralfate suspension 1 gram PO BID for 4 weeks. - Change all oral medications to liquid formulations if possible. - Perform CT scan (computed tomography) of the abdomen with contrast ( pancreatic protocol) when the renal functions improve/ stable. - Refer to a surgeon if symptoms persist and based on the above CT scan results. - Perform a colonoscopy within 3 months for screening ( patient never had prior screening Colonoscopy). - Return to GI clinic in [facility] (address [address], [address], [place] [address]) in 4 -- 6 weeks. Please call GI clinic @ [phone] for apppointment date and time. - Return to primary care physician. Procedure Code(s): --- Professional --- 86137, Esophagogastroduodenoscopy, flexible, transoral; diagnostic, including collection of specimen(s) by brushing or washing, when performed (separate procedure) Diagnosis Code(s): --- Professional --- K21.0, Gastro-esophageal reflux disease with esophagitis K44.9, Diaphragmatic hernia without obstruction or gangrene K31.5, Obstruction of duodenum R93.3, Abnormal findings on diagnostic imaging of other parts of digestive tract CPT copyright 2019 [employer]. All rights reserved. The codes documented in this report are preliminary and upon pleater hand review may be revised to meet current compliance requirements. Matthew Stevens MD Matthew Stevens MD 11/09/2020 11:15:34 AM Electronically signed by Matthew Stevens MD Number of Addenda: 0 Note Initiated On: 11/09/2020 9:59 AM Estimated Blood Loss: Estimated blood loss: none.
[2020-11-09 11:25] VITALS: BP 111/67
[2020-11-09] MEDS ORDERED: ONDANSETRON 4MG/2ML VIAL IV PRN (11:45)
[2020-11-09] MEDS: SUCRALFATE SUSP 1GM/10ML UD PO SCH ×3 (12:11→22:27)
[2020-11-09 14:00] VITALS: BP 122/78
[2020-11-09] MEDS ORDERED: ISOVUE-370 76% 100ML VIAL As Ordered ONE (15:43)
--- NOTE | 2020-11-09 18:08 | REP ---
INDICATION: pancreatic protocol COMPARISON: 11/07/2020. TECHNIQUE: CT Scan of the abdomen was performed with intravenous administration of 100 cc of Isovue 370, without oral contrast. FINDINGS: Lung bases: Unremarkable. Liver: Normal Gallbladder: Contracted. Spleen: Normal. Adrenals: Normal. Pancreas: Normal. Kidneys: Normal. Small and large bowel: The descending and transverse portions of the duodenum appear diffusely thickened. Adjacent to the junction of these 2 portions of the duodenum there is ill-defined heterogeneous hypodensity measuring about 7 x 4 cm, along the anterolateral aspect, which may represent complex fluid. The periphery mildly enhances. I suspect the findings represent inflammatory change and duodenitis, with paraduodenal phlegmonous change, possibly early abscess formation, although there is no air within this possible complex fluid. The adjacent mesenteric fat demonstrates mild hazy stranding. The stomach is significantly distended with air and fluid, suspicious for a partial obstruction at the level of the duodenum. Free fluid: None. Abdominal aorta: No aneurysm or dissection. Adenopathy: None. Osseous structures: Unremarkable. IMPRESSION: Diffuse thickening of the descending and transverse duodenum suspicious for duodenitis. Surrounding heterogeneous hypodensity primarily along the anterolateral aspect of the junction of the descending and transverse duodenum may represent complex fluid, I suspect paraduodenal phlegmonous change, and possibly early abscess formation. A neoplastic etiology could also be a possibility but is considered unlikely. I also suspect partial obstruction of the proximal duodenum. <Electronically signed by Daniel Fuentes > 11/09/20 [id number]
[2020-11-09 22:00] VITALS: BP 125/79
[2020-11-09] MEDS: PROCHLORPERAZINE 10MG/2ML VIAL (J0780 PER 1) IV PRN (22:28)
[2020-11-10] MEDS: ONDANSETRON 4MG/2ML VIAL IV SCH ×5 (00:20→23:12)
[2020-11-10] MEDS: KCL 20MEQ IN D5/NS 1000ML 1,000 ML IV SCH (01:57)
[2020-11-10 06:00] VITALS: BP 129/80
[2020-11-10 06:10] LABS: BASO % 0.5 % (0.0-1.0); EOS # 0.1 10^3/uL (0.0-0.5); EOS % 1.2 % (0.0-3.0); HEMOGLOBIN 11.9 g/dl (12.0-15.5); LYMPH # 1.4 10^3/uL (1.5-5.0); MEAN CORPUSCULAR HEMOGLOBIN 34.1 pg (27.0-33.0); MEAN CORPUSCULAR HGB CONC 33.1 g/dl (32.0-36.5); MEAN CORPUSCULAR VOLUME 103.2 fl (80.0-96.0); MONO # 0.6 10^3/uL (0.0-0.8); MONO % 9.9 % (2.0-8.0); NEUTROPHILS # 3.6 10^3/uL (1.5-8.5); NEUTROPHILS % 64.2 % (36.0-66.0); PLATELET COUNT, AUTOMATED 281 10^3/uL (150-450); RED BLOOD COUNT 3.49 10^6/uL (4.00-5.40); WHITE BLOOD COUNT 5.7 10^3/uL (4.0-10.0)
[2020-11-10 06:26] LABS: BLOOD UREA NITROGEN 13 MG/DL (7-18); CALCIUM LEVEL 9.4 MG/DL (8.5-10.1); CARBON DIOXIDE LEVEL 26 MEQ/L (21-32); CHLORIDE LEVEL 106 MEQ/L (98-107); CREATININE FOR GFR 0.72 MG/DL (0.55-1.30); GLOMERULAR FILTRATION RATE > 60.0 (>51); GLUCOSE, FASTING 107 MG/DL (70-100); POTASSIUM SERUM 3.1 MEQ/L (3.5-5.1); SODIUM LEVEL 138 MEQ/L (136-145)
[2020-11-10] MEDS: KCL 10MEQ/100ML SWI (KRUN) 10 MEQ in IV 1 EA IV SCH ×4 (08:31→12:21)
[2020-11-10] MEDS: SUCRALFATE SUSP 1GM/10ML UD PO SCH ×4 (08:31→20:01)
[2020-11-10] MEDS: LEVOTHYROXINE 100MCG (0.1MG) VIAL IV SCH (08:31)
[2020-11-10] MEDS: PANTOPRAZOLE 40MG VIAL (C9113 PER 1) IV SCH ×2 (08:31→20:01)
[2020-11-10] MEDS: HEPARIN SOD (PORCINE) 5000UNITS/ML 1ML VIAL/SYRINGE SC SCH ×2 (09:51→20:01)
--- NOTE | 2020-11-10 12:53 | IPNPDOC ---
Subjective Date Seen The patient was seen on 11/10/20. Subjective Chief Complaint/HPI Continues to have persistent vomiting. Cannot keep even clear liquids down. Will place NG tube with LIS. Intermittent crampy abdominal pain. No bowel movement. Objective Physical Examination General Exam: Positive: Alert, Cooperative, No Acute Distress Eye Exam: Positive: PERRLA, Conjunctiva & lids normal, EOMI; Negative: Sclera icteric ENT Exam: Positive: Atraumatic, Mucous membr. moist/pink, Pharynx Normal Neck Exam: Positive: Supple; Negative: JVD, thyromegaly Chest Exam: Positive: Clear to auscultation, Normal air movement Heart Exam: Positive: Rate Normal, Regular Rhythm, Normal S1, Normal S2; Negative: Murmurs, Rubs Abdomen Exam: Positive: BS Hypoactive, Soft; Negative: Tenderness, Hepatospenomegaly Extremity Exam: Negative: Clubbing, Cyanosis, Edema Neuro Exam: Positive: Normal Speech, Strength at 5/5 X4 ext, Normal Tone Psych Exam: Positive: Memory Intact, Oriented x 3 Assessment /Plan Assessment 55-year-old female history of hypothyroidism, daily alcohol use presented to ED with nausea, vomiting for 4 days unable to keep anything down. No diarrhea. In fact she is constipated CT Abdomen/pelvis w/o contrast 11/07/20 showed Dilated th ick-walled duodenum. Finding may be due to an infectious or inflammatory duodenitis, duodenal diverticulitis, or underlying pathology. Evaluation is limited without intraluminal contrast. Follow-up CT with enteric contrast may be beneficial. No bowel obstruction. Peripancreatic edema may be related to acute pancreatitis versus inflammation secondary to the adjacent duodenum. She was found to have dehydration, LENIN. She was admitted for viral gastroenteritis with dehydration and LENIN. 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 She underwent CT abdomen with IV contrast pancreatic protocol showed Diffuse thickening of the descending and transverse duodenum suspicious for duodenitis. Surrounding heterogeneous hypodensity primarily along the anterolateral aspect of the junction of the descending and transverse duodenum may represent complex fluid, I suspect paraduodenal phlegmonous change, and possibly early abscess formation. A neoplastic etiology could also be a possibility but is considered unlikely. I also suspect partial obstruction of the proximal duodenum. Small Bowel obstruction/ Duodenal obstruction Due to Extrinsic compression NG tube. IVF, zofran, compazine can have sips of water or ice chips. Surgical consult dr Jimenez. Severe Esophagitis continue PPI and sucralfate. Acute pancreatitis First CT on admission showed Retroperitoneal and peripancreatic edema in the region of the pancreatic head. Second CT with contrast showed paraduodenal phlegmonous change with possible abscess formation. though lipase on admission has been negative but her symptoms were ongoing for several days prior to presentation. Hypokalemia will change IVF with K addition to it. K runs. LENIN Prerenal secondary to dehydration and GI loss. resolved Hypothyroidism TSH remains elevated. her PMD is adjusting the meds. Synthroid. GERD protonix. Significant Alcohol use 2 drinks during week days and 4 to 6 drinks on the week ends. Mixed drinks. Did not have any signs of alcohol withdrawal CIWA discontinued. DVT prophylaxis Heparin Plan/VTE VTE Prophylaxis Ordered?: Yes VS, I&O, 24H, Fishbone Vital Signs/I&O Vital Signs Date Time Temp Pulse Resp B/P (MAP) Pulse Ox O2 Delivery O2 Flow Rate FiO2 11/10/20 06:00 97.7 69 18 129/80 (96) 96 Room Air I&O- Last 24 Hours up to 6 AM 11/10/20 06:00 Intake Total 3705 ml Output Total 2475 ml Balance 1230 ml Laboratory Data 24H LABS Laboratory Tests 2 11/10/20 05:44: Immature Granulocyte % (Auto) 0.2, Neutrophils (%) (Auto) 64.2, Lymphocytes (%) (Auto) 24.0, Monocytes (%) (Auto) 9.9H, Eosinophils (%) (Auto) 1.2, Basophils (%) (Auto) 0.5, Neutrophils # (Auto) 3.6, Lymphocytes # (Auto) 1.4L, Monocytes # (Auto) 0.6, Eosinophils # (Auto) 0.1, Basophils # (Auto) 0.0, Nucleated Red Blood Cells % (auto) 0.0, Anion Gap 6L, Glomerular Filtration Rate > 60.0, Calcium Level 9.4 CBC/BMP Laboratory Tests 11/10/20 05:44 Microbiology Microbiology 11/06/20 Respiratory Virus Panel (PCR) ([facility]) - Final, Complete JEAN CARLOS ACEVEDO MD Nov 10, 2020 12:53
[2020-11-10 14:00] VITALS: BP 131/80
--- NOTE | 2020-11-10 14:28 | REP ---
INDICATION: NG tube placement. COMPARISON: 11/05/2020. TECHNIQUE: SINGLE PORTABLE AP VIEW OF THE CHEST WAS PERFORMED. FINDINGS: The lungs remain clear with no evidence of acute infiltrate. The heart and mediastinum are within normal limits. There is placement of a nasogastric tube with side port in the body of the stomach. IMPRESSION: NO ACUTE PULMONARY DISEASE.Nasogastric tube side port in the body of the stomach. <Electronically signed by Daniel Fuentes > 11/10/20 [id number]
[2020-11-10] MEDS ORDERED: CHLORASEPTIC SPRAY MT PRN (14:35)
[2020-11-10] MEDS: KCL 40MEQ IN D5/NS 1000ML 1,000 ML IV SCH ×2 (14:47→23:11)
[2020-11-10 22:00] VITALS: BP 129/81
[2020-11-11] MEDS: ONDANSETRON 4MG/2ML VIAL IV SCH ×4 (04:48→23:48)
[2020-11-11 06:00] VITALS: BP 128/81
[2020-11-11 07:02] LABS: BASO # 0.1 10^3/uL (0.0-0.2); BASO % 1.1 % (0.0-1.0); EOS # 0.1 10^3/uL (0.0-0.5); EOS % 2.4 % (0.0-3.0); HEMATOCRIT 38.6 % (36.0-47.0); HEMOGLOBIN 12.6 g/dl (12.0-15.5); LYMPH # 1.5 10^3/uL (1.5-5.0); MEAN CORPUSCULAR HEMOGLOBIN 33.8 pg (27.0-33.0); MEAN CORPUSCULAR HGB CONC 32.6 g/dl (32.0-36.5); MEAN CORPUSCULAR VOLUME 103.5 fl (80.0-96.0); MONO # 0.6 10^3/uL (0.0-0.8); MONO % 10.4 % (2.0-8.0); NEUTROPHILS # 3.2 10^3/uL (1.5-8.5); NEUTROPHILS % 58.7 % (36.0-66.0); PLATELET COUNT, AUTOMATED 290 10^3/uL (150-450); RED BLOOD COUNT 3.73 10^6/uL (4.00-5.40); WHITE BLOOD COUNT 5.4 10^3/uL (4.0-10.0)
[2020-11-11 07:19] LABS: INR 1.05; PROTHROMBIN TIME 13.9 SECONDS (12.5-14.3)
[2020-11-11 07:20] LABS: PARTIAL THROMBOPLASTIN TIME 29.8 SECONDS (24.2-38.5)
[2020-11-11 07:32] LABS: BLOOD UREA NITROGEN 12 MG/DL (7-18); CARBON DIOXIDE LEVEL 24 MEQ/L (21-32); CHLORIDE LEVEL 112 MEQ/L (98-107); CREATININE FOR GFR 0.82 MG/DL (0.55-1.30); GLOMERULAR FILTRATION RATE > 60.0 (>51); GLUCOSE, FASTING 112 MG/DL (70-100); SODIUM LEVEL 142 MEQ/L (136-145)
[2020-11-11] MEDS: SUCRALFATE SUSP 1GM/10ML UD PO SCH ×4 (08:13→21:30)
[2020-11-11] MEDS: LEVOTHYROXINE 100MCG (0.1MG) VIAL IV SCH (08:13)
[2020-11-11] MEDS: PANTOPRAZOLE 40MG VIAL (C9113 PER 1) IV SCH ×2 (08:13→21:30)
[2020-11-11] MEDS: HEPARIN SOD (PORCINE) 5000UNITS/ML 1ML VIAL/SYRINGE SC SCH ×2 (08:13→21:30)
[2020-11-11] MEDS: KCL 40MEQ IN D5/NS 1000ML 1,000 ML IV SCH ×2 (08:21→17:10)
[2020-11-11] MEDS ORDERED: LORazepam 2 MG/ML VIAL IV PRN (10:45)
--- NOTE | 2020-11-11 13:07 | IPNPDOC ---
Subjective Date Seen The patient was seen on 11/11/20. Subjective Chief Complaint/HPI Continues to have significant output in the NG tube. Planned for a MRI abdomen today. Objective Physical Examination General Exam: Positive: Alert, Cooperative, No Acute Distress Eye Exam: Positive: PERRLA, Conjunctiva & lids normal, EOMI; Negative: Sclera icteric ENT Exam: Positive: Atraumatic, Mucous membr. moist/pink, Pharynx Normal Neck Exam: Positive: Supple; Negative: JVD, thyromegaly Chest Exam: Positive: Clear to auscultation, Normal air movement Heart Exam: Positive: Rate Normal, Regular Rhythm, Normal S1, Normal S2; Negative: Murmurs, Rubs Abdomen Exam: Positive: Normal bowel sounds, Soft; Negative: Tenderness, Hepatospenomegaly Extremity Exam: Negative: Clubbing, Cyanosis, Edema Neuro Exam: Positive: Normal Speech, Strength at 5/5 X4 ext, Normal Tone Psych Exam: Positive: Memory Intact, Oriented x 3 Assessment /Plan Assessment 55-year-old female history of hypothyroidism, daily alcohol use presented to ED with nausea, vomiting for 4 days unable to keep anything down. No diarrhea. In fact she is constipated CT Abdomen/pelvis w/o contrast 11/07/20 showed Dilated thick-walled duodenum. Finding may be due to an infectious or inflammatory duodenitis, duodenal diverticulitis, or underlying pathology. Evaluation is limited without intraluminal contrast. Follow-up CT with enteric contrast may be beneficial. No bowel obstruction. Peripancreatic edema may be related to acute pancreatitis versus inflammation secondary to the adjacent duodenum. She was found to have dehydration, LENIN. She was admitted for viral gastroenteritis with dehydration and LENIN. 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 She underwent CT abdomen with IV contrast pancreatic protocol showed Diffuse thickening of the descending and transverse duodenum suspicious for duodenitis. Surrounding heterogeneous hypodensity primarily along the anterolateral aspect of the junction of the descending and transverse duodenum may represent complex fluid, I suspect paraduodenal phlegmonous change, and possibly early abscess formation. A neoplastic etiology could also be a possibility but is considered unlikely. I also suspect partial obstruction of the proximal duodenum. Small Bowel obstruction/ Duodenal obstruction Due to Extrinsic compression NG tube. IVF, zofran, compazine can have sips of water or ice chips. Surgical consult dr Jimenez. Planned for MRI with contrast. Severe Esophagitis continue PPI and sucralfate. Acute pancreatitis First CT on admission showed Retroperitoneal and peripancreatic edema in the region of the pancreatic head. Second CT with contrast showed paraduodenal phlegmonous change with possible abscess formation. though lipase on admission has been negative but her symptoms were ongoing for several days prior to presentation. Hypokalemia cont IVF with K addition to it. LENIN Prerenal secondary to dehydration and GI loss. resolved Hypothyroidism TSH remains elevated. her PMD is adjusting the meds. Synthroid. GERD protonix. Significant Alcohol use 2 drinks during week days and 4 to 6 drinks on the week ends. Mixed drinks. Did not have any signs of alcohol withdrawal CIWA discontinued. DVT prophylaxis Heparin Plan/VTE VTE Prophylaxis Ordered?: Yes VS, I&O, 24H, Fishbone Vital Signs/I&O Vital Signs Date Time Temp Pulse Resp B/P (MAP) Pulse Ox O2 Delivery O2 Flow Rate FiO2 11/11/20 06:00 97.5 78 16 128/81 (97) 96 Room Air I&O- Last 24 Hours up to 6 AM 11/11/20 06:00 Intake Total 1320 ml Output Total 2900 ml Balance -1580 ml Laboratory Data 24H LABS Laboratory Tests 2 11/11/20 06:41: Immature Granulocyte % (Auto) 0.4, Neutrophils (%) (Auto) 58.7, Lymphocytes (%) (Auto) 27.0, Monocytes (%) (Auto) 10.4H, Eosinophils (%) (Auto) 2.4, Basophils (%) (Auto) 1.1H, Neutrophils # (Auto) 3.2, Lymphocytes # (Auto) 1.5, Monocytes # (Auto) 0.6, Eosinophils # (Auto) 0.1, Basophils # (Auto) 0.1, Nucleated Red Blood Cells % (auto) 0.0, Prothrombin Time 13.9, Prothromb Time International Ratio 1.05, Activated Partial Thromboplast Time 29.8, Anion Gap 6L, Glomerular Filtration Rate > 60.0, Calcium Level 9.0 CBC/BMP Laboratory Tests 11/11/20 06:41 Microbiology Microbiology 11/06/20 Respiratory Virus Panel (PCR) ([facility]) - Final, Complete JEAN CARLOS ACEVEDO MD Nov 11, 2020 13:07
--- NOTE | 2020-11-11 13:48 | IPNPDOC ---
Text Note Date of Service The patient was seen on 11/11/20. NOTE General Surgery Dr Jimenez. 55-year-old female with N/V, CT Abdomen/pelvis w/o contrast 11/07/20 showed Dilated thick-walled duodenum. 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 CT abdomen with IV contrast pancreatic protocol showed Diffuse thickening of the descending and transverse duodenum suspicious for duodenitis. Surrounding heterogeneous hypodensity primarily along the anterolateral aspect of the junction of the descending and transverse duodenum may represent complex fluid, possible paraduodenal phlegmonous change, and possibly early abscess formation. A neoplastic etiology a possibility. Possible partial obstruction of the proximal duodenum. NGT replaced this a.m. after it accidentally was removed during coughing and sneezing. MRI abdomen was requested as per Dr. Jimenez. Patient states she cannot have MRI related to severe claustrophobia and would not be able to tolerate it even if she was given something for anxiety. She declines to proceed with the imaging. Afebrile, heart rate 78, respiratory rate 16, blood pressure 128/81. General. Awake and alert, NAD. NG tube in place Lungs clear to auscultation S1-S2 regular rate rhythm Abdomen soft, some distention noted with mild tenderness across the upper abdomen. No guarding or rebound WBC 5.4, hemoglobin 12.6, platelets 290 Small Bowel obstruction/ Duodenal obstruction, extrinsic compression. NG tube in place. IVF sips of water/ice chips. Dr. Jimenez reviewed and examined this morning, plan was for MRI of the abdomen however the patient states she is unable to tolerate MRI related to claustrophobia and states that she was given something for anxiety she would not be able to tolerate the imaging. This is relayed to Dr. Jimenez. Continue to monitor. VS,Fishbone, I+O VS, Fishbone, I+O Laboratory Tests 11/11/20 06:41 Vital Signs Date Time Temp Pulse Resp B/P (MAP) Pulse Ox O2 Delivery O2 Flow Rate FiO2 11/11/20 06:00 97.5 78 16 128/81 (97) 96 Room Air I&O- Last 24 Hours up to 6 AM 11/11/20 06:00 Intake Total 1320 ml Output Total 2900 ml Balance -1580 ml Attending Note Attending Note Agree with note by ARCHANA Mazariegos. I saw pt last pm and discussed MRI with her. She now indicates she will not attempt. Possible etiologies of pt problem include pancreatitis, penetrating ulcer (though no ulcer seen on EGD) and cancer. Would recommend continuing NG and considering repeat CT vs UGI series to reassess in a few days. Marcela Gaspar Nov 11, 2020 13:48 Richie Jimenez Nov 11, 2020 21:08
[2020-11-11 14:00] VITALS: BP 124/80
[2020-11-11 22:00] VITALS: BP 117/73
[2020-11-12] MEDS: ONDANSETRON 4MG/2ML VIAL IV SCH ×4 (04:56→23:07)
[2020-11-12] MEDS: KCL 40MEQ IN D5/NS 1000ML 1,000 ML IV SCH ×3 (04:56→23:07)
[2020-11-12 06:00] VITALS: BP 120/76
[2020-11-12 06:03] LABS: BASO # 0.1 10^3/uL (0.0-0.2); BASO % 0.8 % (0.0-1.0); EOS # 0.2 10^3/uL (0.0-0.5); EOS % 2.8 % (0.0-3.0); HEMATOCRIT 37.9 % (36.0-47.0); HEMOGLOBIN 12.1 g/dl (12.0-15.5); LYMPH # 1.8 10^3/uL (1.5-5.0); MEAN CORPUSCULAR HEMOGLOBIN 33.9 pg (27.0-33.0); MEAN CORPUSCULAR HGB CONC 31.9 g/dl (32.0-36.5); MEAN CORPUSCULAR VOLUME 106.2 fl (80.0-96.0); MONO # 0.7 10^3/uL (0.0-0.8); MONO % 10.9 % (2.0-8.0); NEUTROPHILS # 3.4 10^3/uL (1.5-8.5); NEUTROPHILS % 55.3 % (36.0-66.0); PLATELET COUNT, AUTOMATED 269 10^3/uL (150-450); RED BLOOD COUNT 3.57 10^6/uL (4.00-5.40); WHITE BLOOD COUNT 6.1 10^3/uL (4.0-10.0)
[2020-11-12 06:21] LABS: BLOOD UREA NITROGEN 10 MG/DL (7-18); CALCIUM LEVEL 8.8 MG/DL (8.5-10.1); CARBON DIOXIDE LEVEL 25 MEQ/L (21-32); CHLORIDE LEVEL 115 MEQ/L (98-107); CREATININE FOR GFR 0.86 MG/DL (0.55-1.30); GLOMERULAR FILTRATION RATE > 60.0 (>51); GLUCOSE, FASTING 103 MG/DL (70-100); POTASSIUM SERUM 4.4 MEQ/L (3.5-5.1); SODIUM LEVEL 144 MEQ/L (136-145)
--- NOTE | 2020-11-12 08:26 | IPNPDOC ---
Text Note Date of Service The patient was seen on 11/12/20. NOTE General Surgery Dr Jimenez. 55-year-old female admitted with N/V, CT Abdomen/pelvis w/o contrast 11/07/20 showed Dilated thick-walled duodenum. 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 CT abdomen with IV contrast pancreatic protocol showed Diffuse thickening of the descending and transverse duodenum suspicious for duodenitis. Surrounding heterogeneous hypodensity primarily along the anterolateral aspect of the junction of the descending and transverse duodenum may represent complex fluid, possible paraduodenal phlegmonous change, and possibly early abscess formation, neoplastic etiology a possibility. Possible partial obstruction of the proximal duodenum. NGT in place. States no nausea currently, states abdomen feels less distended today. Afebrile, heart rate 67, respiratory rate 20, blood pressure 120/76. General. Awake and alert, NAD. NG tube in place Lungs clear to auscultation S1-S2 regular rate rhythm Abdomen soft, still some distention noted with mild tenderness across the upper abdomen about the same. No guarding or rebound WBC 6.1, hemoglobin 12.1, platelets 269 I/O 1200/2550, -1350. NGT 2049 output Small Bowel obstruction/ Duodenal obstruction, extrinsic compression. NG tube in place with 2049 output yesterday. Continue LIS. IVF 100ml/hr sips of water/ice chips. Pt was unable to tolerate MRI abdomen related to claustrophobia and stated that even with something for anxiety she would not be able to tolerate the imaging. Continue to monitor. VS,Fishbone, I+O VS, Fishbone, I+O Laboratory Tests 11/12/20 05:31 Vital Signs Date Time Temp Pulse Resp B/P (MAP) Pulse Ox O2 Delivery O2 Flow Rate FiO2 11/12/20 06:00 97.9 67 20 120/76 (91) 96 Room Air I&O- Last 24 Hours up to 6 AM 11/12/20 05:59 Intake Total 1200 ml Output Total 2250 ml Balance -1050 ml Attending Note Attending Note Agree with above note. I suspect this represents localized pancreatitis and should resolve. Barium upper GI series may demonstrate duodenum best. Marcela Gaspar Nov 12, 2020 08:26 Richie Jimenez Nov 13, 2020 00:55
[2020-11-12] MEDS: PANTOPRAZOLE 40MG VIAL (C9113 PER 1) IV SCH ×2 (08:42→20:21)
[2020-11-12] MEDS: SUCRALFATE SUSP 1GM/10ML UD PO SCH ×4 (08:42→20:21)
[2020-11-12] MEDS: LEVOTHYROXINE 100MCG (0.1MG) VIAL IV SCH (08:43)
[2020-11-12] MEDS: HEPARIN SOD (PORCINE) 5000UNITS/ML 1ML VIAL/SYRINGE SC SCH ×2 (08:43→20:21)
[2020-11-12 14:00] VITALS: BP 117/77
--- NOTE | 2020-11-12 14:53 | IPNPDOC ---
Date Seen The patient was seen on 11/12/20. Progress Note SUBJECTIVE: put out 300 cc through NG overnight. States abdominal pain has improved. Abdo distension diminished. OBJECTIVE PHYSICAL EXAMINATION: VITAL SIGNS: please see below General: NAD, comfortable HEENT: PERRLA, EOMI, sclerae clear. NG tube in place. Neck: supple, normal ROM, no JVD Respiratory: lungs CTAB, no wheeze, no rales, no crackles CVS: RRR, normal S1, S2, no murmurs Abdo: soft, no masses, no hepatosplenomegaly, BS+, no rebound tenderness. No findings for peritonitis. Extremities: no edema, pulses 2+ MSK: no joint deformities, normal ROM Neuro: no focal neuro deficits, moving all 4 extremities, CN2-12 intact. Strength 5/5 in all 4 extremities. No nystagmus. Psych: calm, cooperative, AAO x 3 LABORATORY DATA, IMAGING STUDIES, MICROBIOLOGY: Please see below. DVT prophylaxis ordered?: heparin ASSESSMENT AND PLAN: ssessment 55-year-old female history of hypothyroidism, daily alcohol use presented to ED with nausea, vomiting for 4 days unable to keep anything down. No diarrhea. In fact she is constipated CT Abdomen/pelvis w/o contrast 11/07/20 showed Dilated thick-walled duodenum. Finding may be due to an infectious or inflammatory duodenitis, duodenal diverticulitis, or underlying pathology. Evaluation is limited without intraluminal contrast. Follow-up CT with enteric contrast may be beneficial. No bowel obstruction. Peripancreatic edema may be related to acute pancreatitis versus inflammation secondary to the adjacent duodenum. She was found to have dehydration, LENIN. She was admitted for viral gastroenteritis with dehydration and LENIN. 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 She underwent CT abdomen with IV contrast pancreatic protocol showed Diffuse thickening of the descending and transverse duodenum suspicious for duodenitis. Surrounding heterogeneous hypodensity primarily along the anterolateral aspect of the junction of the descending and transverse duodenum may represent complex fluid, I suspect paraduodenal phlegmonous change, and possibly early abscess formation. A neoplastic etiology could also be a possibility but is considered unlikely. I also suspect partial obstruction of the proximal duodenum. Small Bowel obstruction/ Duodenal obstruction Due to Extrinsic compression NG tube. IVF, zofran, compazine can have sips of water or ice chips. Surgical consult dr Jimenez. Patient declined MRI abdomend due to claustrophobia, not willing to receive small dose of anxiolytic Severe Esophagitis continue PPI and sucralfate. Acute pancreatitis First CT on admission showed Retroperitoneal and peripancreatic edema in the region of the pancreatic head. Second CT with contrast showed paraduodenal phlegmonous change with possible abscess formation. though lipase on admission has been negative but her symptoms were ongoing for several days prior to presentation. Hypokalemia cont IVF with K addition to it. LENIN Prerenal secondary to dehydration and GI loss. resolved Hypothyroidism TSH remains elevated. her PMD is adjusting the meds. Synthroid. GERD protonix. Significant Alcohol use 2 drinks during week days and 4 to 6 drinks on the week ends. Mixed drinks. Did not have any signs of alcohol withdrawal CIWA discontinued. DVT prophylaxis Heparin VS, I&O, 24H, Fishbone Vital Signs/I&O Vital Signs Date Time Temp Pulse Resp B/P (MAP) Pulse Ox O2 Delivery O2 Flow Rate FiO2 11/12/20 14:00 98.9 71 16 117/77 (90) 94 Room Air I&O- Last 24 Hours up to 6 AM 11/12/20 06:00 Intake Total 1200 ml Output Total 2550 ml Balance -1350 ml Laboratory Data 24H LABS Laboratory Tests 2 11/12/20 05:31: Immature Granulocyte % (Auto) 0.2, Neutrophils (%) (Auto) 55.3, Lymphocytes (%) (Auto) 30.0, Monocytes (%) (Auto) 10.9H, Eosinophils (%) (Auto) 2.8, Basophils (%) (Auto) 0.8, Neutrophils # (Auto) 3.4, Lymphocytes # (Auto) 1.8, Monocytes # (Auto) 0.7, Eosinophils # (Auto) 0.2, Basophils # (Auto) 0.1, Nucleated Red Blood Cells % (auto) 0.0, Anion Gap 4L, Glomerular Filtration Rate > 60.0, Calcium Level 8.8 11/12/20 06:09: Bedside Glucose (Misc Panel) 103 11/12/20 11:59: Bedside Glucose (Misc Panel) 106H CBC/BMP Laboratory Tests 11/12/20 05:31 Microbiology Microbiology 11/06/20 Respiratory Virus Panel (PCR) ([facility]) - Final, Complete POLINKEVYCH,AMBREEN MD Nov 12, 2020 14:53
[2020-11-12] MEDS ORDERED: LIDOCAINE VISCOUS 2% SOLN 15ML UDC SS PRN (18:50)
[2020-11-12 22:00] VITALS: BP 143/91
[2020-11-13] MEDS: ONDANSETRON 4MG/2ML VIAL IV SCH ×4 (04:22→22:30)
[2020-11-13 06:00] VITALS: BP_SYST 122; BP_SYST 162; BP_DIAS 73; BP_DIAS 83
[2020-11-13 06:26] LABS: BASO # 0.1 10^3/uL (0.0-0.2); BASO % 0.8 % (0.0-1.0); EOS # 0.2 10^3/uL (0.0-0.5); HEMATOCRIT 37.6 % (36.0-47.0); HEMOGLOBIN 12.1 g/dl (12.0-15.5); LYMPH # 1.5 10^3/uL (1.5-5.0); LYMPH % 20.8 % (24.0-44.0); MEAN CORPUSCULAR HEMOGLOBIN 33.9 pg (27.0-33.0); MEAN CORPUSCULAR HGB CONC 32.2 g/dl (32.0-36.5); MEAN CORPUSCULAR VOLUME 105.3 fl (80.0-96.0); MONO # 0.7 10^3/uL (0.0-0.8); MONO % 9.5 % (2.0-8.0); NEUTROPHILS # 4.9 10^3/uL (1.5-8.5); NEUTROPHILS % 66.6 % (36.0-66.0); PLATELET COUNT, AUTOMATED 255 10^3/uL (150-450); RED BLOOD COUNT 3.57 10^6/uL (4.00-5.40); WHITE BLOOD COUNT 7.4 10^3/uL (4.0-10.0)
[2020-11-13 06:48] LABS: BLOOD UREA NITROGEN 7 MG/DL (7-18); CALCIUM LEVEL 9.7 MG/DL (8.5-10.1); CARBON DIOXIDE LEVEL 24 MEQ/L (21-32); CHLORIDE LEVEL 112 MEQ/L (98-107); CREATININE FOR GFR 0.82 MG/DL (0.55-1.30); GLOMERULAR FILTRATION RATE > 60.0 (>51); GLUCOSE, FASTING 104 MG/DL (70-100); SODIUM LEVEL 142 MEQ/L (136-145)
[2020-11-13] MEDS: PANTOPRAZOLE 40MG VIAL (C9113 PER 1) IV SCH ×2 (10:51→22:27)
[2020-11-13] MEDS: LEVOTHYROXINE 100MCG (0.1MG) VIAL IV SCH (10:51)
[2020-11-13] MEDS: HEPARIN SOD (PORCINE) 5000UNITS/ML 1ML VIAL/SYRINGE SC SCH ×2 (10:52→22:28)
[2020-11-13] MEDS: KCL 40MEQ IN D5/NS 1000ML 1,000 ML IV SCH ×2 (10:52→22:27)
[2020-11-13] MEDS: SUCRALFATE SUSP 1GM/10ML UD PO SCH ×4 (10:52→22:27)
--- NOTE | 2020-11-13 12:19 | IPNPDOC ---
Text Note Date of Service The patient was seen on 11/13/20. NOTE General Surgery Dr Jimenez. 55-year-old female admitted with N/V, CT Abdomen/pelvis w/o contrast 11/07/20 showed Dilated thick-walled duodenum. 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 CT abdomen with IV contrast pancreatic protocol showed Diffuse thickening of the descending and transverse duodenum suspicious for duodenitis. Surrounding heterogeneous hypodensity primarily along the anterolateral aspect of the junction of the descending and transverse duodenum may represent complex fluid, possible paraduodenal phlegmonous change, and possibly early abscess formation, neoplastic etiology a possibility. Possible partial obstruction of the proximal duodenum. General Surgery was consulted re duodenal obstruction. NGT in place. Complaining of sore throat with NG tube, states Chloraseptic is ineffective. States no nausea currently, states abdominal pain and distention has improved. Afebrile, heart rate 95, respiratory rate 19, blood pressure 122/83 General. Awake and alert, NAD. NG tube in place Lungs clear to auscultation S1-S2 regular rate rhythm Abdomen soft, distention improved, some tenderness in the epigastric area, but less tender than she had been. No guarding or rebound WBC 7.4, hemoglobin 12.1, neutrophils 66.6 I/O 2580/2300, +280 NGT 1500 output, but the patient has been taking ice chips and sips Small Bowel obstruction/ Duodenal obstruction, extrinsic compression. Abdominal pain and distention has been improving. NG tube in place with 1500 mL output yesterday however the patient is taking ice chips and sips. The patient is reviewed with Dr. Jimenez this morning, plan for trial of clamping NG tube. IVF 100ml/hr Pt was unable to tolerate MRI abdomen related to claustrophobia and stated that even with something for anxiety she would not be able to tolerate the imaging. Continue to monitor. VS,Fishbone, I+O VS, Fishbone, I+O Laboratory Tests 11/13/20 05:57 Vital Signs Date Time Temp Pulse Resp B/P (MAP) Pulse Ox O2 Delivery O2 Flow Rate FiO2 11/13/20 06:00 98.8 95 19 122/83 (96) 94 Room Air I&O- Last 24 Hours up to 6 AM 11/13/20 05:59 Intake Total 2580 ml Output Total 2350 ml Balance 230 ml Attending Note Attending Note Labs stable and normal. NG output down some . Abdomen benign. Will trial NG clamping and DC if tolerates. Marcela Gaspar Nov 13, 2020 12:19 Richie Jimenez Nov 14, 2020 13:00
[2020-11-13] MEDS: CHLORHEXIDINE GLUCONATE 0.12 % 15ML UDC (PERIDEX ORAL RINSE) SSP SCH ×3 (13:30→21:00)
[2020-11-13 14:00] VITALS: BP 122/84
--- NOTE | 2020-11-13 21:14 | IPNPDOC ---
Date Seen The patient was seen on 11/13/20. Progress Note SUBJECTIVE: put out 300 cc through NG overnight. States abdominal pain has improved. Abdo distension diminished. OBJECTIVE PHYSICAL EXAMINATION: VITAL SIGNS: please see below General: NAD, comfortable HEENT: PERRLA, EOMI, sclerae clear. NG tube in place. Neck: supple, normal ROM, no JVD Respiratory: lungs CTAB, no wheeze, no rales, no crackles CVS: RRR, normal S1, S2, no murmurs Abdo: soft, no masses, no hepatosplenomegaly, BS+, no rebound tenderness. No findings for peritonitis. Extremities: no edema, pulses 2+ MSK: no joint deformities, normal ROM Neuro: no focal neuro deficits, moving all 4 extremities, CN2-12 intact. Strength 5/5 in all 4 extremities. No nystagmus. Psych: calm, cooperative, AAO x 3 LABORATORY DATA, IMAGING STUDIES, MICROBIOLOGY: Please see below. DVT prophylaxis ordered?: heparin ASSESSMENT AND PLAN: 55-year-old female history of hypothyroidism, daily alcohol use presented to ED with nausea, vomiting for 4 days unable to keep anything down. No diarrhea. In fact she is constipated CT Abdomen/pelvis w/o contrast 11/07/20 showed Dilated thick-walled duodenum. Finding may be due to an infectious or inflammatory duodenitis, duodenal diverticulitis, or underlying pathology. Evaluation is limited without intraluminal contrast. Follow-up CT with enteric contrast may be beneficial. No bowel obstruction. Peripancreatic edema may be related to acute pancreatitis versus inflammation secondary to the adjacent duodenum. She was found to have dehydration, LENIN. She was admitted for viral gastroenteritis with dehydration and LENIN. 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 She underwent CT abdomen with IV contrast pancreatic protocol showed Diffuse thickening of the descending and transverse duodenum suspicious for duodenitis. Surrounding heterogeneous hypodensity primarily along the anterolateral aspect of the junction of the descending and transverse duodenum may represent complex fluid, I suspect paraduodenal phlegmonous change, and possibly early abscess formation. A neoplastic etiology could also be a possibility but is considered unlikely. I also suspect partial obstruction of the proximal duodenum. Small Bowel obstruction/ Duodenal obstruction Due to Extrinsic compression NG tube. IVF, zofran, compazine can have sips of water or ice chips. Surgical consult dr Jimenez. Patient declined MRI abdomend due to claustrophobia, not willing to receive small dose of anxiolytic Reviewed gen sx notes, planning for NGT clamping trial Severe Esophagitis continue PPI and sucralfate. Acute pancreatitis First CT on admission showed Retroperitoneal and peripancreatic edema in the region of the pancreatic head. Second CT with contrast showed paraduodenal phlegmonous change with possible abscess formation. though lipase on admission has been negative but her symptoms were ongoing for several days prior to presentation. Sore throat with voice hoarseness - onset with NGT placement - chloraseptic not helping, trial viscous lidocaine - discussed with Dr. Muller ENT - will give sips of water, try chlorhexidine oral rinse for better oral hygiene Hypokalemia cont IVF with K addition to it. LENIN Prerenal secondary to dehydration and GI loss. resolved Hypothyroidism TSH remains elevated. her PMD is adjusting the meds. Synthroid. GERD protonix. Significant Alcohol use 2 drinks during week days and 4 to 6 drinks on the week ends. Mixed drinks. Did not have any signs of alcohol withdrawal CIWA discontinued. DVT prophylaxis Heparin VS, I&O, 24H, Fishbone Vital Signs/I&O Vital Signs Date Time Temp Pulse Resp B/P (MAP) Pulse Ox O2 Delivery O2 Flow Rate FiO2 11/13/20 14:00 99.0 94 18 122/84 (97) 96 Room Air I&O- Last 24 Hours up to 6 AM 11/13/20 06:00 Intake Total 1980 ml Output Total 2050 ml Balance -70 ml Laboratory Data 24H LABS Laboratory Tests 2 11/13/20 00:09: Bedside Glucose (Misc Panel) 114H 11/13/20 05:57: Immature Granulocyte % (Auto) 0.3, Neutrophils (%) (Auto) 66.6H, Lymphocytes (%) (Auto) 20.8L, Monocytes (%) (Auto) 9.5H, Eosinophils (%) (Auto) 2.0, Basophils (%) (Auto) 0.8, Neutrophils # (Auto) 4.9, Lymphocytes # (Auto) 1.5, Monocytes # (Auto) 0.7, Eosinophils # (Auto) 0.2, Basophils # (Auto) 0.1, Nucleated Red Blood Cells % (auto) 0.0, Anion Gap 6L, Glomerular Filtration Rate > 60.0, Calcium Level 9.7 11/13/20 06:20: Bedside Glucose (Misc Panel) 111H 11/13/20 11:57: Bedside Glucose (Misc Panel) 92 11/13/20 18:11: Bedside Glucose (Misc Panel) 94 CBC/BMP Laboratory Tests 11/13/20 05:57 Microbiology Microbiology 11/06/20 Respiratory Virus Panel (PCR) ([facility]) - Final, Complete AMBREEN PEREZ MD Nov 13, 2020 21:14
[2020-11-13 22:00] VITALS: BP 121/82
[2020-11-13] MEDS ORDERED: ACETAMINOPHEN 325 MG/10.15 ML UDC PO PRN (22:00)
[2020-11-14] MEDS: ONDANSETRON 4MG/2ML VIAL IV SCH ×4 (05:41→23:00)
[2020-11-14] MEDS: KCL 40MEQ IN D5/NS 1000ML 1,000 ML IV SCH ×2 (05:41→17:39)
[2020-11-14 06:00] VITALS: BP 124/81
[2020-11-14 07:01] LABS: BASO # 0.1 10^3/uL (0.0-0.2); BASO % 0.9 % (0.0-1.0); EOS # 0.1 10^3/uL (0.0-0.5); EOS % 1.4 % (0.0-3.0); HEMATOCRIT 37.3 % (36.0-47.0); LYMPH # 1.6 10^3/uL (1.5-5.0); LYMPH % 22.9 % (24.0-44.0); MEAN CORPUSCULAR HEMOGLOBIN 34.3 pg (27.0-33.0); MEAN CORPUSCULAR HGB CONC 32.2 g/dl (32.0-36.5); MEAN CORPUSCULAR VOLUME 106.6 fl (80.0-96.0); MONO # 0.7 10^3/uL (0.0-0.8); MONO % 9.4 % (2.0-8.0); NEUTROPHILS # 4.6 10^3/uL (1.5-8.5); PLATELET COUNT, AUTOMATED 236 10^3/uL (150-450)
[2020-11-14 07:31] LABS: BLOOD UREA NITROGEN 6 MG/DL (7-18); CALCIUM LEVEL 9.8 MG/DL (8.5-10.1); CARBON DIOXIDE LEVEL 23 MEQ/L (21-32); CHLORIDE LEVEL 111 MEQ/L (98-107); GLOMERULAR FILTRATION RATE > 60.0 (>51); GLUCOSE, FASTING 101 MG/DL (70-100); POTASSIUM SERUM 3.8 MEQ/L (3.5-5.1); SODIUM LEVEL 141 MEQ/L (136-145)
--- NOTE | 2020-11-14 08:48 | REP ---
INDICATION: NGT placement. COMPARISON: Comparison chest radiograph November 10, 2020.. TECHNIQUE: Three views including upright views of the chest, upper abdomen and a KUB. FINDINGS: Upright chest radiograph demonstrates a nasogastric tube in place with side hole at the gastroesophageal junction. The lung wyman are clear. Pleural angles are sharp. There is no evidence of infiltrate or free subdiaphragmatic air. Heart is normal in size. Supine and erect views the abdomen show an unremarkable bowel gas pattern. The tip of the NG tube is in the gastric fundus, side hole at the GE junction. Umbilical jewelry and clothing artifact are noted. Psoas margins and flank stripes are intact. IMPRESSION: Unremarkable bowel gas pattern. NG tube in the gastric fundus with side hole at the GE junction. No other acute abnormality.. <Electronically signed by Homero Flaherty > 11/14/20 [id number]
[2020-11-14] MEDS: PANTOPRAZOLE 40MG VIAL (C9113 PER 1) IV SCH ×2 (08:57→22:13)
[2020-11-14] MEDS: LEVOTHYROXINE 100MCG (0.1MG) VIAL IV SCH (08:57)
[2020-11-14] MEDS: SUCRALFATE SUSP 1GM/10ML UD PO SCH ×4 (08:57→22:13)
[2020-11-14] MEDS: HEPARIN SOD (PORCINE) 5000UNITS/ML 1ML VIAL/SYRINGE SC SCH ×2 (08:57→22:14)
[2020-11-14] MEDS: CHLORHEXIDINE GLUCONATE 0.12 % 15ML UDC (PERIDEX ORAL RINSE) SSP SCH ×3 (08:58→21:00)
--- NOTE | 2020-11-14 09:09 | IPNPDOC ---
Text Note Date of Service The patient was seen on 11/14/20. NOTE General Surgery Dr Jimenez. 55-year-old female admitted with N/V, CT Abdomen/pelvis w/o contrast 11/07/20 showed Dilated thick-walled duodenum. 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 CT abdomen with IV contrast pancreatic protocol showed Diffuse thickening of the descending and transverse duodenum suspicious for duodenitis. Surrounding heterogeneous hypodensity primarily along the anterolateral aspect of the junction of the descending and transverse duodenum may represent complex fluid, possible paraduodenal phlegmonous change, and possibly early abscess formation, neoplastic etiology a possibility. Possible partial obstruction of the proximal duodenum. General Surgery was consulted re duodenal obstruction. NGT has been clamped overnight. Clamping for 6 hrs done yesterday and when hooked back to suction x 30 min there was 90ml NGT output per nursing. States no nausea currently, states abdominal pain and distention has improved. Anxious to have NGT removed. Afebrile, heart rate 90, respiratory rate 17, blood pressure 124/81 General. Awake and alert, NAD. NG tube in place, clamped. Lungs clear to auscultation S1-S2 regular rate rhythm Abdomen soft, no distention, no tenderness this AM in the epigastric area. No guarding or rebound WBC 7.0, hemoglobin 12.0, neutrophils 65 I/O 1200/1890, -690 NGT 440ml output, recorded yesterday. NGT output after clamping yesterday 90ml. Abdominal x-ray 11/13 indicating nonspecific bowel gas pattern Small Bowel obstruction/ Duodenal obstruction, extrinsic compression. Abdominal pain and distention has resolved. With clamping yesterday for 6 hours had 90 mL sound when hooked to suction for 30 minutes. Nursing states it has been clamped overnight. The patient is reviewed with Dr. Jimenez this morning, plan to discontinue NG tube. Okay for trial of clear liquids however have reinforced with the patient and with nursing for the patient to advance slowly to see if she will tolerate. IVF 100ml/hr Continue to monitor. VS,Fishbone, I+O VS, Fishbone, I+O Laboratory Tests 11/14/20 06:30 Vital Signs Date Time Temp Pulse Resp B/P (MAP) Pulse Ox O2 Delivery O2 Flow Rate FiO2 4/15/21 06:00 98.6 90 17 124/81 (95) 95 Room Air I&O- Last 24 Hours up to 6 AM 11/14/20 06:00 Intake Total 1200 ml Output Total 1965 ml Balance -765 ml Attending Note Attending Note Tolerated NG clamping without problem. Will DC NG. Begin clears. May need to advance diet slowly to allow continued healing of presumed pancreatitis. Marcela Gaspar Nov 14, 2020 09:08 Richie Jimenez Nov 14, 2020 13:03
--- NOTE | 2020-11-14 12:59 | IPNPDOC ---
Date Seen The patient was seen on 11/14/20. Progress Note SUBJECTIVE: NGT was clamped overnight, put out 90cc. Removed by surgery this morning. Trial CLD. Patient states that her abdminal pain has greatly improved. Since NGT came out, throat pain and L ear pain improved, voice hoarseness persists. OBJECTIVE PHYSICAL EXAMINATION: VITAL SIGNS: please see below General: NAD, comfortable HEENT: PERRLA, EOMI, sclerae clear. Neck: supple, normal ROM, no JVD Respiratory: lungs CTAB, no wheeze, no rales, no crackles CVS: RRR, normal S1, S2, no murmurs Abdo: soft, no masses, no hepatosplenomegaly, BS+, no rebound tenderness. No findings for peritonitis. Extremities: no edema, pulses 2+ MSK: no joint deformities, normal ROM Neuro: no focal neuro deficits, moving all 4 extremities, CN2-12 intact. Strength 5/5 in all 4 extremities. No nystagmus. Psych: calm, cooperative, AAO x 3 LABORATORY DATA, IMAGING STUDIES, MICROBIOLOGY: Please see below. DVT prophylaxis ordered?: heparin ASSESSMENT AND PLAN: 55-year-old female history of hypothyroidism, daily alcohol use presented to ED with nausea, vomiting for 4 days unable to keep anything down. No diarrhea. In fact she is constipated CT Abdomen/pelvis w/o contrast 11/07/20 showed Dilated thick-walled duodenum. Finding may be due to an infectious or inflammatory duodenitis, duodenal diverticulitis, or underlying pathology. Evaluation is limited without intraluminal contrast. Follow-up CT with enteric contrast may be beneficial. No bowel obstruction. Peripancreatic edema may be related to acute pancreatitis versus inflammation secondary to the adjacent duodenum. She was found to have dehydration, LENIN. She was admitted for viral gastroenteritis with dehydration and LENIN. 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 She underwent CT abdomen with IV contrast pancreatic protocol showed Diffuse thickening of the descending and transverse duodenum suspicious for duodenitis. Surrounding heterogeneous hypodensity primarily along the anterolateral aspect of the junction of the descending and transverse duodenum may represent complex fluid, I suspect paraduodenal phlegmonous change, and possibly early abscess formation. A neoplastic etiology could also be a possibility but is considered unlikely. I also suspect partial obstruction of the proximal duodenum. Small Bowel obstruction/ Duodenal obstruction - Due to Extrinsic compression - NGT was removed on 11/14/20 - trial CLD - c/w IVF, zofran, compazine - Surgical consult dr Jimenez, recommendations are greatly appreciated - Patient declined MRI abdomend due to claustrophobia, not willing to receive small dose of anxiolytic Severe Esophagitis - continue PPI and sucralfate. Acute pancreatitis - First CT on admission showed Retroperitoneal and peripancreatic edema in the region of the pancreatic head. - Second CT with contrast showed paraduodenal phlegmonous change with possible abscess formation. though lipase on admission has been negative but her symptoms were ongoing for several days prior to presentation. Sore throat with voice hoarseness - onset with NGT placement - chloraseptic not helping, trial viscous lidocaine - discussed with Dr. Muller ENT - will give sips of water, try chlorhexidine oral rinse for better oral hygiene Hypokalemia - continue D5NS with KCL at 100 cc/hr - K 3.8 this morning LENIN - Prerenal secondary to dehydration and GI loss. - resolved Hypothyroidism - continue with synthroid - repeat TFTs as outpatient GERD - c/w protonix. Significant Alcohol use - 2 drinks during week days and 4 to 6 drinks on the week ends. Mixed drinks. - has not had any signs of etoh withdrawal - DC CIWA DVT prophylaxis - heparin SC Dispo: pending clinical improvement. VS, I&O, 24H, Fishbone Vital Signs/I&O Vital Signs Date Time Temp Pulse Resp B/P (MAP) Pulse Ox O2 Delivery O2 Flow Rate FiO2 11/14/20 06:00 98.6 90 17 124/81 (95) 95 Room Air I&O- Last 24 Hours up to 6 AM 11/14/20 06:00 Intake Total 1200 ml Output Total 1965 ml Balance -765 ml Laboratory Data 24H LABS Laboratory Tests 2 11/13/20 18:11: Bedside Glucose (Misc Panel) 94 11/14/20 00:07: Bedside Glucose (Misc Panel) 105 11/14/20 05:45: Bedside Glucose (Misc Panel) 105 11/14/20 06:30: Immature Granulocyte % (Auto) 0.4, Neutrophils (%) (Auto) 65.0, Lymphocytes (%) (Auto) 22.9L, Monocytes (%) (Auto) 9.4H, Eosinophils (%) (Auto) 1.4, Basophils (%) (Auto) 0.9, Neutrophils # (Auto) 4.6, Lymphocytes # (Auto) 1.6, Monocytes # (Auto) 0.7, Eosinophils # (Auto) 0.1, Basophils # (Auto) 0.1, Nucleated Red Blood Cells % (auto) 0.0, Anion Gap 7L, Glomerular Filtration Rate > 60.0, Calcium Level 9.8 11/14/20 11:34: Bedside Glucose (Misc Panel) 104 CBC/BMP Laboratory Tests 11/14/20 06:30 Microbiology Microbiology 11/06/20 Respiratory Virus Panel (PCR) ([facility]) - Final, Complete POLINKEVAMBREEN REZA MD Nov 14, 2020 12:58
[2020-11-14 14:00] VITALS: BP 124/81
[2020-11-14 22:00] VITALS: BP 122/80
[2020-11-15] MEDS: ONDANSETRON 4MG/2ML VIAL IV SCH ×2 (05:00→11:00)
[2020-11-15 06:00] VITALS: BP 120/80
[2020-11-15 06:01] LABS: BASO # 0.1 10^3/uL (0.0-0.2); EOS # 0.2 10^3/uL (0.0-0.5); EOS % 3.4 % (0.0-3.0); HEMATOCRIT 35.6 % (36.0-47.0); HEMOGLOBIN 11.4 g/dl (12.0-15.5); LYMPH # 1.8 10^3/uL (1.5-5.0); LYMPH % 35.1 % (24.0-44.0); MEAN CORPUSCULAR VOLUME 106.3 fl (80.0-96.0); MONO # 0.5 10^3/uL (0.0-0.8); MONO % 9.1 % (2.0-8.0); NEUTROPHILS # 2.6 10^3/uL (1.5-8.5); PLATELET COUNT, AUTOMATED 234 10^3/uL (150-450); RED BLOOD COUNT 3.35 10^6/uL (4.00-5.40); WHITE BLOOD COUNT 5.1 10^3/uL (4.0-10.0)
[2020-11-15 06:25] LABS: BLOOD UREA NITROGEN 5 MG/DL (7-18); CALCIUM LEVEL 8.8 MG/DL (8.5-10.1); CARBON DIOXIDE LEVEL 25 MEQ/L (21-32); CHLORIDE LEVEL 108 MEQ/L (98-107); CREATININE FOR GFR 0.77 MG/DL (0.55-1.30); GLOMERULAR FILTRATION RATE > 60.0 (>51); GLUCOSE, FASTING 93 MG/DL (70-100); POTASSIUM SERUM 3.8 MEQ/L (3.5-5.1); SODIUM LEVEL 138 MEQ/L (136-145)
[2020-11-15] MEDS: CHLORHEXIDINE GLUCONATE 0.12 % 15ML UDC (PERIDEX ORAL RINSE) SSP SCH ×2 (09:00→15:24)
[2020-11-15] MEDS: PANTOPRAZOLE 40MG VIAL (C9113 PER 1) IV SCH (09:08)
[2020-11-15] MEDS: SUCRALFATE SUSP 1GM/10ML UD PO SCH ×2 (09:08→12:15)
[2020-11-15] MEDS: HEPARIN SOD (PORCINE) 5000UNITS/ML 1ML VIAL/SYRINGE SC SCH (09:08)
[2020-11-15] MEDS: LEVOTHYROXINE 100MCG (0.1MG) VIAL IV SCH (09:08)
--- NOTE | 2020-11-15 10:36 | IPNPDOC ---
Text Note Date of Service The patient was seen on 11/15/20. NOTE General Surgery Dr Jimenez. 55-year-old female admitted with N/V, CT Abdomen/pelvis w/o contrast 11/07/20 showed Dilated thick-walled duodenum. 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 CT abdomen with IV contrast pancreatic protocol showed Diffuse thickening of the descending and transverse duodenum suspicious for duodenitis. Surrounding heterogeneous hypodensity primarily along the anterolateral aspect of the junction of the descending and transverse duodenum may represent complex fluid, possible paraduodenal phlegmonous change, and possibly early abscess formation, neoplastic etiology a possibility. Possible partial obstruction of the proximal duodenum. General Surgery was consulted re duodenal obstruction. The patient is tolerating full liquids. Denies abdominal pain, nausea, vomiting. T max 99.3 VSS General. Awake and alert, NAD. Lungs clear to auscultation S1-S2 regular rate rhythm Abdomen soft, no distention, no tenderness. No guarding or rebound WBC 5.1, hemoglobin 11.4, neutrophils 51 Small Bowel obstruction/ Duodenal obstruction, extrinsic compression. Abdominal pain and distention has resolved. The patient is reviewed with Dr. Jimenez this morning. The patient is tolerating full liquids. Will advance to soft diet. The patient should advance her diet slowly and eat in small amounts. From surgery standpoint, the patient is okay for discharge when medically stable and follow-up with primary care provider as outpatient. VS,Fishbone, I+O VS, Fishbone, I+O Laboratory Tests 11/15/20 05:37 Vital Signs Date Time Temp Pulse Resp B/P (MAP) Pulse Ox O2 Delivery O2 Flow Rate FiO2 11/15/20 06:00 98.6 76 18 120/80 (93) 97 Room Air I&O- Last 24 Hours up to 6 AM 11/15/20 06:00 Intake Total 4910 ml Output Total 1450 ml Balance 3460 ml Attending Note Attending Note Agree with above note. I spoke with pt last pm and advised her that there may still be some degree of narrowing in the duodenum and she should advance her diet slowly enough to know that the food will be tolerated. She should avoid fibrous vegetables and chew her food well for now. She should follow up with her primary or Dr Stevens to arrange any follow up endoscopy or imaging. Marcela Gaspar Nov 15, 2020 10:36 Richie Jimenez Nov 15, 2020 12:22
[2020-11-15] MEDS ORDERED: PANT40TA29 PO (13:30)
[2020-11-15] MEDS ORDERED: ONDA4TAB6 PO (13:30)
[2020-11-15] MEDS ORDERED: SUCR1ORA PO (13:30)
--- NOTE | 2020-11-15 13:42 | DS.PDOC ---
Discharge Summary General Date of Admission Nov 07, 2020 at 03:11 Date of Discharge 11/15/20 Discharge Summary PROCEDURES PERFORMED DURING STAY: [None]. ADMITTING DIAGNOSES: suspected viral gastroenteritis LENIN Hx of hypothyroidism. DISCHARGE DIAGNOSES: Small bowel obstruction Duodenitis Severe esophagitis Acute pancreatitis Sore throat Hypokalemia LENIN Suspected etoh use disorder COMPLICATIONS/CHIEF COMPLAINT: Acute Kidney Injury,Gastroentritis. HISTORY OF PRESENT ILLNESS: 55-year-old female history of hypothyroidism started having symptoms of nausea vomiting and diarrhea on Wednesday. She went to the urgent care yesterday blood work was unrevealing and she was given oral Zofran. She was unable to keep it down her nausea and vomiting persisted and were associated with poor appetite including poor fluid intake. She tells me that her diarrhea only lasted one day however her nausea and vomiting have not improved. She has no sick contacts at home. She presented to the emergency department due to her intractable nausea and vomiting. In the emergency department CT of the abdomen/pelvis shows inflammation consistent with viral enteritis. She was also found to have acute kidney injury suspected to be from dehydration. Patient will be admitted to the medical service for management of intractable nausea and vomiting IV fluid hydration as well as acute kidney injury. On review of systems patient tells me she doesn't have any chest pain or shortness of breath. She denies any abdominal pain however she does endorse a history of gassiness but this is not new. She denies dysuria. Denies actively having diarrhea. HOSPITAL COURSE: Small Bowel obstruction/ Duodenal obstruction - Due to Extrinsic compression - NGT was removed on 11/14/20 - trial CLD - c/w IVF, zofran, compazine - Surgical consult dr Jimenez, recommendations are greatly appreciated - Patient declined MRI abdomend due to claustrophobia, not willing to receive small dose of anxiolytic - patient tolerating full liquid diet. Cleared for DC from surgery standpoint. D/w Dr. Jimenez. No follow up with general surgery required. Recommending to f/u gastroenterology. Severe Esophagitis - continue PPI and sucralfate. Acute pancreatitis - First CT on admission showed Retroperitoneal and peripancreatic edema in the region of the pancreatic head. - Second CT with contrast showed paraduodenal phlegmonous change with possible abscess formation. though lipase on admission has been negative but her symptoms were ongoing for several days prior to presentation. Sore throat with voice hoarseness - onset with NGT placement - chloraseptic not helping, trial viscous lidocaine - discussed with Dr. Muller ENT - will give sips of water, try chlorhexidine oral rinse for better oral hygiene - pain resolved after NGT removed Hypokalemia - continue D5NS with KCL at 100 cc/hr - K 3.8 this morning LENIN - Prerenal secondary to dehydration and GI loss. - resolved Hypothyroidism - continue with synthroid - repeat TFTs as outpatient GERD - c/w protonix. Significant Alcohol use - 2 drinks during week days and 4 to 6 drinks on the week ends. Mixed drinks. - has not had any signs of etoh withdrawal - DC CIWA DVT prophylaxis - heparin SC Dispo: pending clinical improvement. DISCHARGE MEDICATIONS: Please see below. ALLERGIES: Please see below. PHYSICAL EXAMINATION ON DISCHARGE: VITAL SIGNS: please see below General: NAD, comfortable HEENT: PERRLA, EOMI, sclerae clear Neck: supple, normal ROM, no JVD Respiratory: lungs CTAB, no wheeze, no rales, no crackles CVS: RRR, normal S1, S2, no murmurs Abdo: soft, no masses, no hepatosplenomegaly, BS+, no rebound tenderness Extremities: no edema, pulses 2+ MSK: no joint deformities, normal ROM Neuro: no focal neuro deficits, moving all 4 extremities, CN2-12 intact. Strength 5/5 in all 4 extremities. No nystagmus. Psych: calm, cooperative, AAO x 3 LABORATORY DATA: Please see below. IMAGING: CT abdo pelvis (11/07/20): 1. Dilated thick-walled duodenum. Finding may be due to an infectious or inflammatory duodenitis, duodenal diverticulitis, or underlying pathology. Evaluation is limited without intraluminal contrast. Follow-up CT with enteric contrast may be beneficial. 2. No bowel obstruction. 3. Peripancreatic edema may be related to acute pancreatitis versus inflammation secondary to the adjacent duodenum. CT abdo pelvis with IV contrast (11/09/20): Diffuse thickening of the descending and transverse duodenum suspicious for duodenitis. Surrounding heterogeneous hypodensity primarily along the anterolateral aspect of the junction of the descending and transverse duodenum may represent complex fluid, I suspect paraduodenal phlegmonous change, and possibly early abscess formation. A neoplastic etiology could also be a possibility but is considered unlikely. I also suspect partial obstruction of the proximal duodenum. CXR (11/10/20): NO ACUTE PULMONARY DISEASE.Nasogastric tube side port in the body of the stomach. KUB (11/14/20): Unremarkable bowel gas pattern. NG tube in the gastric fundus with side hole at the GE junction. No other acute abnormality.. PROGNOSIS: good ACTIVITY: [As tolerated]. DIET: advance as tolerated. Avoid DISCHARGE PLAN: DC home with PCP follow up. Per surgery, no need to follow up in clinic. Will refer to GI service to assess duodenal stenosis. DISPOSITION: DC home. DISCHARGE INSTRUCTIONS: . Please follow-up with your primary care doctor within 3-5 days . Please follow-up with gastroenterology within 1-2 weeks . Please abstain from alcohol. . Please taking medications as prescribed. . If you develop bleeding, chest pain, shortness of breath, seizures, nausea, fevers, or otherwise worsening of your symptoms, please call 911 or return to the nearest emergency room ITEMS TO FOLLOWUP ON ON OUTPATIENT: 1. . DISCHARGE CONDITION: [Stable]. TIME SPENT ON DISCHARGE: 35 minutes Vital Signs/I&Os Vital Signs Date Time Temp Pulse Resp B/P (MAP) Pulse Ox O2 Delivery O2 Flow Rate FiO2 11/15/20 06:00 98.6 76 18 120/80 (93) 97 Room Air I&O- Last 24 Hours up to 6 AM 11/15/20 06:00 Intake Total 4910 ml Output Total 1450 ml Balance 3460 ml Laboratory Data Labs 24H Laboratory Tests 2 11/14/20 17:28: Bedside Glucose (Misc Panel) 87 11/15/20 05:37: Immature Granulocyte % (Auto) 0.4, Neutrophils (%) (Auto) 51.0, Lymphocytes (%) (Auto) 35.1, Monocytes (%) (Auto) 9.1H, Eosinophils (%) (Auto) 3.4H, Basophils (%) (Auto) 1.0, Neutrophils # (Auto) 2.6, Lymphocytes # (Auto) 1.8, Monocytes # (Auto) 0.5, Eosinophils # (Auto) 0.2, Basophils # (Auto) 0.1, Nucleated Red Blood Cells % (auto) 0.0, Anion Gap 5L, Glomerular Filtration Rate > 60.0, Calcium Level 8.8 CBC/BMP Laboratory Tests 11/15/20 05:37 FSBS Laboratory Tests Test 11/14/20 17:28 Range/Units Bedside Glucose (Misc Panel) 87 70-105 MG/DL Microbiology Microbiology 11/06/20 Respiratory Virus Panel (PCR) (SEAN) - Final, Complete Discharge Medications Scheduled Famotidine (Famotidine) 20 Mg Tablet, 20 MG PO DAILY, (Reported) Levothyroxine Sodium (Levothyroxine Sodium) 125 Mcg Tablet, 125 MCG PO DAILY, (R eported) Omeprazole (Omeprazole) 20 Mg Capsule.dr, 20 MG PO BID, (Reported) Pantoprazole Sodium (Pantoprazole Sodium) 40 Mg Tablet.dr, 40 MG PO BID Sucralfate (Sucralfate) 1 Gm/10 Ml Oral.susp, 1 GM PO ACHS Scheduled PRN Ondansetron (Ondansetron Odt) 4 Mg Tab.rapdis, 4 MG PO Q6H PRN for NAUSEA OR VOMITING Allergies Coded Allergies: No Known Allergies (Unverified , 11/06/20) AMBREEN PEREZ MD Nov 15, 2020 13:42
[2020-11-15 14:00] VITALS: BP 102/62
== END 2020-11-15 16:41 | disposition home or self-care (01) | DRG 282 ==
LOC: M ED 21:02 → M ED INP 11-07 03:11 → ENRESERV 11-07 08:12 → M MSPAV 11-07 09:08
PROVIDERS: ADMIT Family Medicine; ATTEND Family Medicine
PROC: 0DJ08ZZ Inspection of Upper Intestinal Tract, Via Natural or Artificial Opening Endoscopic (ICD-10-PCS; principal; 2020-11-09 13:00)
DX: K85.90 Acute pancreatitis without necrosis or infection, unspecified (principal); N17.9 Acute kidney failure, unspecified; K31.5 Obstruction of duodenum; E87.6 Hypokalemia; K29.80 Duodenitis without bleeding; F10.10 Alcohol abuse, uncomplicated; K20.90 Esophagitis, unspecified without bleeding; E03.9 Hypothyroidism, unspecified; Z79.899 Other long term (current) drug therapy; F17.200 Nicotine dependence, unspecified, uncomplicated; K44.9 Diaphragmatic hernia without obstruction or gangrene; K21.00 Gastro-esophageal reflux disease with esophagitis, without bleeding

== ENCOUNTER → 2020-11-18 | Outpatient (REF) | payer OTHER, BC ==
[~2020-11-18] MED LIST changes: +PANT40TA29 PO; +SUCR1ORA PO
[2020-11-18 12:19] LABS: AMYLASE 81 U/L (25-115); LIPASE 272 U/L (73-393)
== END ==
LOC: M LAB REF 11:24
PROVIDERS: ATTEND Physician Assistant Medical
DX: K85.90 Acute pancreatitis without necrosis or infection, unspecified (principal)

== ENCOUNTER → 2021-01-03 | Outpatient (CLI) | payer BC, OTHER ==
[~2021-01-03] MED LIST changes: +GLUCAGON INJ 1MG VIAL As Ordered ONE; +ISOVUE-370 76% 100ML VIAL As Ordered ONE; +VoLumen 0.1% SUSPENSION 450ML BOTTLE As Ordered ONE
--- NOTE | 2021-01-03 10:58 | REP ---
INDICATION: ABN FINDINGS IMAG F/U CT COMPARISON: None. TECHNIQUE: Axial contrast-enhanced images from the lung bases to the pubic symphysis with images obtained in arterial and portal venous phases of enhancement. Low-dose oral contrast material was administered prior to imaging. Coronal and sagittal reformations were obtained. This CT examination was performed using the following dose reduction techniques: Automated exposure control, adjustment of mA and/or kv according to the patient's size, and use of iterative reconstruction technique. FINDINGS: The infectious/inflammatory changes involving and surrounding the duodenum have completely resolved and the stomach as well as the duodenum to the ligament of Treitz all appear relatively normal. No residual inflammatory stranding or fluid collection is identified.. Remainder of the small and large bowel is grossly unremarkable. Normal terminal ileum and appendix are identified in the right lower quadrant. The liver demonstrates a subtle nodular contour raising the possibility of underlying cirrhosis and correlation should be considered. No focal hepatic lesions are identified. Spleen, pancreas, bilateral adrenal glands and kidneys are normal. Pelvis demonstrates normal bladder and age-appropriate uterus/adnexa. No pelvic fluid. No ascites. No free air. No obvious adenopathy. Abdominal aorta without aneurysm or dissection. Surrounding musculoskeletal structures intact and without acute process. IMPRESSION: 1. Previously noted infectious/inflammatory process involving the duodenum in the right upper quadrant has completely resolved. The enteric system is otherwise relatively normal in appearance. Upper GI follow-up examination and/or endoscopy may be warranted to evaluate for underlying pathology. 2. A subtle nodular contour to the liver raise the possibility of underlying cirrhosis and correlation may be warranted. <Electronically signed by Adarsh Denson > 01/03/21 [id number]
== END ==
LOC: M RAD 08:45
PROVIDERS: ATTEND Internal Medicine Gastroenterology
DX: R93.3 Abnormal findings on diagnostic imaging of other parts of digestive tract (principal); K76.89 Other specified diseases of liver
CPT/HCPCS: 74177; J1610; Q9967

== ENCOUNTER → 2021-03-10 | Outpatient (CLI) | payer BC, OTHER ==
[~2021-03-10] MED LIST changes: -GLUCAGON INJ 1MG VIAL As Ordered ONE; -ISOVUE-370 76% 100ML VIAL As Ordered ONE; +OMEP-173 PO; -OMEP-218 PO; +OMEP40CA5 PO; +VITMTA PO; -VoLumen 0.1% SUSPENSION 450ML BOTTLE As Ordered ONE
== END ==
LOC: M LABSMTC 09:59
PROVIDERS: ATTEND Anesthesiology
DX: Z01.812 Encounter for preprocedural laboratory examination (principal); Z20.822 Contact with and (suspected) exposure to COVID-19

== ENCOUNTER 2021-03-14 10:43 | Day surgery (SDC) | payer BC, OTHER ==
[~2021-03-14] VITALS: Ht 167.6 cm; Wt 92.5 kg
[~2021-03-14 10:43] MED LIST changes: +LIDOCAINE 2% 100MG/5ML SDV (FOR ANES.) As Ordered ONE; +NS 1,000 ML IV ONE; -OMEP-173 PO; +OMEP-218 PO; +OMEP-221 PO; -OMEP40CA5 PO; +fentaNYL 100 MCG/2 ML INJECTION (J3010) As Ordered ONE; +propofoL 200 MG/20 ML VIAL As Ordered ONE
[2021-03-14] MEDS ORDERED: propofoL 200 MG/20 ML VIAL As Ordered ONE (12:57)
--- NOTE | 2021-03-14 13:29 | ROOR ---
Patient Name: Rama Valderrama Procedure Date: 03/14/2021 12:32 PM Date of : 1965 Age: 55 Room: [facility] Gender: Female Note Status: Finalized Procedure: Upper GI endoscopy Indications: Follow-up of duodenal stenosis, Abnormal CT of the GI tract Providers: Matthew Stevens MD Referring MD: Brandie López NP Requesting Provider: Medicines: Monitored Anesthesia Care Complications: No immediate complications. Procedure: Pre-Anesthesia Assessment: - Prior to the procedure, a History and Physical was performed, and patient medications and allergies were reviewed. The patient is competent. The risks and benefits of the procedure and the sedation options and risks were discussed with the patient. All questions were answered and informed consent was obtained. Patient identification and proposed procedure were verified by the physician, the nurse and the anesthesiologist in the procedure room. Mental Status Examination: normal. Airway Examination: normal oropharyngeal airway and neck mobility. Respiratory Examination: clear to auscultation. CV Examination: normal. Prophylactic Antibiotics: The patient does not require prophylactic antibiotics. Prior Anticoagulants: The patient has taken no previous anticoagulant or antiplatelet agents. ASA Grade Assessment: II - A patient with mild systemic disease. After reviewing the risks and benefits, the patient was deemed in satisfactory condition to undergo the procedure. The anesthesia plan was to use monitored anesthesia care (MAC). Immediately prior to administration of medications, the patient was re-assessed for adequacy to receive sedatives. The heart rate, respiratory rate, oxygen saturations, blood pressure, adequacy of pulmonary ventilation, and response to care were monitored throughout the procedure. The physical status of the patient was re-assessed after the procedure. The Endoscope was introduced through the mouth, and advanced to the second part of duodenum. The upper GI endoscopy was accomplished without difficulty. The patient tolerated the procedure well. Findings: A mild Schatzki ring was found in the distal esophagus. Biopsies were taken with a cold forceps for histology. Verification of patient identification for the specimen was done by the physician and nurse using the patient's name, date and medical record number. Estimated blood loss was minimal. LA Grade A (one or more mucosal breaks less than 5 mm, not extending between tops of 2 mucosal folds) esophagitis with no bleeding was found in the distal esophagus. Biopsies were taken with a cold forceps for histology. A small hiatal hernia was present. Scattered mild inflammation characterized by congestion (edema), erythema and granularity was found in the gastric antrum. Biopsies were taken with a cold forceps for Helicobacter pylori testing. Normal mucosa was found in the duodenal bulb, in the second portion of the duodenum, in the area of the papilla, in the third portion of the duodenum and in the fourth portion of the duodenum. Biopsies were taken with a cold forceps for histology. Impression: - Mild Schatzki ring. Biopsied. - LA Grade A reflux esophagitis. Biopsied. - Small hiatal hernia. - Gastritis. Biopsied. - Normal mucosa was found in the duodenal bulb, in the second portion of the duodenum, in the area of the papilla, in the third portion of the duodenum and in the fourth portion of the duodenum. Biopsied. Recommendation: - Patient has a contact number available for emergencies. The signs and symptoms of potential delayed complications were discussed with the patient. Return to normal activities tomorrow. Written discharge instructions were provided to the patient. - High fiber diet. - Continue present medications. - Use Prilosec (omeprazole) 40 mg PO Daily - to be taken dirt contractor on empty stomach for 6 weeks. - Await pathology results. - Telephone GI clinic for pathology results in 2 weeks. - Follow an antireflux regimen. - Return to GI clinic if persistent symptoms or new symptoms. - Return to primary care physician. Procedure Code(s): --- Professional --- 14556, Esophagogastroduodenoscopy, flexible, transoral; with biopsy, single or multiple Diagnosis Code(s): --- Professional --- K22.2, Esophageal obstruction K21.0, Gastro-esophageal reflux disease with esophagitis K44.9, Diaphragmatic hernia without obstruction or gangrene K29.70, Gastritis, unspecified, without bleeding K31.5, Obstruction of duodenum R93.3, Abnormal findings on diagnostic imaging of other parts of digestive tract CPT copyright 2019 [employer]. All rights reserved. The codes documented in this report are preliminary and upon diet aide review may be revised to meet current compliance requirements. Matthew Stevens MD Matthew Stevens MD 03/14/2021 1:29:47 PM Electronically signed by Matthew Stevens MD Number of Addenda: 0 Note Initiated On: 03/14/2021 12:32 PM Estimated Blood Loss: Estimated blood loss was minimal.
--- NOTE | 2021-03-14 13:45 | ROOR ---
Patient Name: Rama Valderrama Procedure Date: 03/14/2021 12:33 PM Date of : 1965 Age: 55 Room: [facility] Gender: Female Note Status: Finalized Procedure: Colonoscopy Indications: Screening for colorectal malignant neoplasm Providers: Matthew Stevens MD Referring MD: Brandie López NP Requesting Provider: Medicines: Monitored Anesthesia Care Complications: No immediate complications. Procedure: Pre-Anesthesia Assessment: - Prior to the procedure, a History and Physical was performed, and patient medications and allergies were reviewed. The patient is competent. The risks and benefits of the procedure and the sedation options and risks were discussed with the patient. All questions were answered and informed consent was obtained. Patient identification and proposed procedure were verified by the physician, the nurse and the anesthesiologist in the procedure room. Mental Status Examination: alert and oriented. Airway Examination: normal oropharyngeal airway and neck mobility. Respiratory Examination: clear to auscultation. CV Examination: normal. Prophylactic Antibiotics: The patient does not require prophylactic antibiotics. Prior Anticoagulants: The patient has taken no previous anticoagulant or antiplatelet agents. ASA Grade Assessment: II - A patient with mild systemic disease. After reviewing the risks and benefits, the patient was deemed in satisfactory condition to undergo the procedure. The anesthesia plan was to use monitored anesthesia care (MAC). Immediately prior to administration of medications, the patient was re-assessed for adequacy to receive sedatives. The heart rate, respiratory rate, oxygen saturations, blood pressure, adequacy of pulmonary ventilation, and response to care were monitored throughout the procedure. The physical status of the patient was re-assessed after the procedure. The Colonoscope was introduced through the anus and advanced to the terminal ileum, with identification of the appendiceal orifice and IC valve. The colonoscopy was performed without difficulty. The patient tolerated the procedure well. The quality of the bowel preparation was good. The terminal ileum, ileocecal valve, appendiceal orifice, and rectum were photographed. Scope insertion time was 2 minutes. Scope withdrawal time was 8 minutes. The total duration of the procedure was 12 minutes. Findings: The perianal and digital rectal examinations were normal. The terminal ileum appeared normal. Three sessile polyps were found in the recto-sigmoid colon and descending colon. The polyps were 3 to 5 mm in size. These polyps were removed with a cold snare. Resection and retrieval were complete. Verification of patient identification for the specimen was done by the physician and nurse using the patient's name, date and medical record number. Estimated blood loss was minimal. Non-bleeding external and internal hemorrhoids were found during retroflexion. The hemorrhoids were medium-sized. Impression: - The examined portion of the ileum was normal. - Three 3 to 5 mm polyps at the recto-sigmoid colon and in the descending colon, removed with a cold snare. Resected and retrieved. - Non-bleeding external and internal hemorrhoids. Recommendation: - Patient has a contact number available for emergencies. The signs and symptoms of potential delayed complications were discussed with the patient. Return to normal activities tomorrow. Written discharge instructions were provided to the patient. - High fiber diet. - Continue present medications. - Await pathology results. - Repeat colonoscopy in 5-10 years for surveillance based on pathology results. - Telephone GI clinic for pathology results in 2 weeks. - Return to primary care physician. - Return to GI clinic if persistent symptoms or new symptoms. Procedure Code(s): --- Professional --- 82209, Colonoscopy, flexible; with removal of tumor(s), polyp(s), or other lesion(s) by snare technique Diagnosis Code(s): --- Professional --- Z12.11, Encounter for screening for malignant neoplasm of colon K64.8, Other hemorrhoids K63.5, Polyp of colon CPT copyright 2019 [employer]. All rights reserved. The codes documented in this report are preliminary and upon railway signal technician review may be revised to meet current compliance requirements. Matthew Stevens MD Matthew Stevens MD 03/14/2021 1:44:56 PM Electronically signed by Matthew Stevens MD Number of Addenda: 0 Note Initiated On: 03/14/2021 12:33 PM Estimated Blood Loss: Estimated blood loss was minimal.
[2021-03-14 13:52] VITALS: BP 143/82
== END 2021-03-14 14:10 | disposition home or self-care (01) ==
LOC: M OPP 10:43
PROVIDERS: ATTEND Internal Medicine Gastroenterology
DX: Z12.11 Encounter for screening for malignant neoplasm of colon (principal); K64.8 Other hemorrhoids; K44.9 Diaphragmatic hernia without obstruction or gangrene; K22.2 Esophageal obstruction; K29.70 Gastritis, unspecified, without bleeding; K31.5 Obstruction of duodenum; K21.00 Gastro-esophageal reflux disease with esophagitis, without bleeding; Z79.899 Other long term (current) drug therapy; F17.210 Nicotine dependence, cigarettes, uncomplicated
CPT/HCPCS: 43239; 45385; 88305; J3010

== ENCOUNTER → 2021-06-03 | Outpatient (REF) | payer BC, OTHER ==
[~2021-06-03] MED LIST changes: -LIDOCAINE 2% 100MG/5ML SDV (FOR ANES.) As Ordered ONE; -NS 1,000 ML IV ONE; -fentaNYL 100 MCG/2 ML INJECTION (J3010) As Ordered ONE; -propofoL 200 MG/20 ML VIAL As Ordered ONE
[2021-06-05 15:08] LABS: ANTINUCLEAR ANTIBODIES DIRECT Negative (Negative); Lyme Disease IgG/IgM Antibodie <0.91 ISR (0.00-0.90); Lyme Disease IgM Ab Quantitati <0.80 index (0.00-0.79)
== END ==
LOC: M LAB REF 16:49
PROVIDERS: ATTEND Registered Nurse
DX: E87.6 Hypokalemia (principal); M13.0 Polyarthritis, unspecified

== ENCOUNTER → 2021-06-10 | Outpatient (CLI) | payer BC, OTHER ==
--- NOTE | 2021-06-10 16:56 | REP ---
INDICATION: THROAT FULLNESS, HYPOTHYROIDISM. COMPARISON: None. TECHNIQUE: Real-time sonographic evaluation of the thyroid gland with Doppler FINDINGS: The right lobe measures 3.1 x 1.8 x 1.4 cm the left lobe measures 2.6 x 1 x 1.9 cm. The isthmus measures 2 mm. The thyroid parenchymal echo pattern is somewhat heterogenous. There are no definite cystic or solid masses. There is a possible echogenic nodule seen inferior to the right lobe of the thyroid gland. IMPRESSION: No definite thyroid nodule or mass, however, possible nodule seen inferior to the inferior pole the right lobe. Consider contrast-enhanced neck CT for further evaluation. <Electronically signed by Diaz Nesbitt > 06/10/21 [id number]
== END ==
LOC: M RAD 14:57
PROVIDERS: ATTEND Registered Nurse
DX: E03.9 Hypothyroidism, unspecified (principal)

== ENCOUNTER → 2021-07-09 | Outpatient (REF) | payer BC, OTHER | LOC: M LAB REF 16:16 | PROVIDERS: ATTEND Registered Nurse | DX: R74.8 Abnormal levels of other serum enzymes (principal) ==

== ENCOUNTER → 2021-07-17 | Outpatient (CLI) | payer BC, OTHER ==
[~2021-07-17] MED LIST changes: +ISOVUE-370 76% 100ML VIAL As Ordered ONE; +OMEP-173 PO; -OMEP-218 PO; -OMEP-221 PO; +OMEP40CA5 PO
== END ==
LOC: M RAD 10:48
PROVIDERS: ATTEND Registered Nurse
DX: E04.1 Nontoxic single thyroid nodule (principal)
CPT/HCPCS: 70491; Q9967

== ENCOUNTER → 2021-07-21 | Outpatient (REF) | payer OTHER ==
[~2021-07-21] MED LIST changes: -ISOVUE-370 76% 100ML VIAL As Ordered ONE
[2021-07-21 12:39] LABS: BASO % 0.6 % (0.0-1.0); EOS # 0.1 10^3/uL (0.0-0.5); EOS % 1.2 % (0.0-3.0); HEMATOCRIT 45.1 % (36.0-47.0); HEMOGLOBIN 14.7 g/dl (12.0-15.5); LYMPH # 1.6 10^3/uL (1.5-5.0); MEAN CORPUSCULAR HEMOGLOBIN 34.5 pg (27.0-33.0); MEAN CORPUSCULAR HGB CONC 32.6 g/dl (32.0-36.5); MEAN CORPUSCULAR VOLUME 105.9 fl (80.0-96.0); MONO # 0.5 10^3/uL (0.0-0.8); MONO % 7.1 % (2.0-8.0); NEUTROPHILS # 4.3 10^3/uL (1.5-8.5); NEUTROPHILS % 66.8 % (36.0-66.0); PLATELET COUNT, AUTOMATED 265 10^3/uL (150-450); RED BLOOD COUNT 4.26 10^6/uL (4.00-5.40); WHITE BLOOD COUNT 6.5 10^3/uL (4.0-10.0)
[2021-07-21 13:10] LABS: ALBUMIN 4.2 GM/DL (3.2-5.2); ALT/SGPT 45 U/L (12-78); BILIRUBIN,TOTAL 0.5 MG/DL (0.2-1.0); BLOOD UREA NITROGEN 14 MG/DL (7-18); C REACTIVE PROTEIN QUANTITATIV 0.49 MG/DL (0.00-0.30); CALCIUM LEVEL 10.2 MG/DL (8.5-10.1); CARBON DIOXIDE LEVEL 26 MEQ/L (21-32); CHLORIDE LEVEL 105 MEQ/L (98-107); GLOMERULAR FILTRATION RATE > 60.0 (>51); GLUCOSE, FASTING 101 MG/DL (70-100); IMMUNOGLOBULIN G 1280 MG/DL (681-1648); POTASSIUM SERUM 3.9 MEQ/L (3.5-5.1); SODIUM LEVEL 138 MEQ/L (136-145); TOTAL PROTEIN 8.2 GM/DL (6.4-8.2)
[2021-07-21 14:43] LABS: ERYTHROCYTE SEDIMENTATION RATE 21 mm/hr (0-30)
[2021-07-23 10:18] LABS: ALBUMIN 4.65 GM/DL (3.29-5.55); ALBUMIN % 56.7 % (55.8-66.1); ALPHA-1-GLOBULIN % 3.8 % (2.9-4.9); ALPHA-1-GLOBULINS 0.31 GM/DL (0.17-0.41); ALPHA-2-GLOBULINS 0.93 GM/DL (0.42-0.99); ALPHA-2-GLOBULINS % 11.3 % (7.1-11.8); BETA-1-GLOBULINS % 6.1 % (4.7-7.2); BETA-2-GLOBULINS 0.48 GM/DL (0.19-0.55); BETA-2-GLOBULINS % 5.9 % (3.2-6.5); GAMMA GLOBULIN % 16.2 % (11.1-18.8); GAMMA GLOBULINS 1.33 GM/DL (0.65-1.58)
== END ==
LOC: M SFHCRHEU 11:23
PROVIDERS: ATTEND Internal Medicine Rheumatology
DX: R76.8 Other specified abnormal immunological findings in serum (principal); M35.3 Polymyalgia rheumatica; Z72.0 Tobacco use

== ENCOUNTER → 2022-03-06 | Outpatient (CLI) | payer BC, OTHER | LOC: M RAD 10:28 | PROVIDERS: ATTEND Registered Nurse | DX: E04.1 Nontoxic single thyroid nodule (principal) ==

== ENCOUNTER → 2022-04-08 | Outpatient (CLI) | payer BC, OTHER ==
[~2022-04-08] MED LIST changes: +ISOVUE-370 76% 100ML VIAL As Ordered ONE
== END ==
LOC: M RAD 16:59
PROVIDERS: ATTEND Registered Nurse
DX: R93.0 Abnormal findings on diagnostic imaging of skull and head, not elsewhere classified (principal)
CPT/HCPCS: 70491; Q9967

== ENCOUNTER → 2022-05-11 | Outpatient (CLI) | payer BC, OTHER ==
[~2022-05-11] MED LIST changes: -ISOVUE-370 76% 100ML VIAL As Ordered ONE
[2022-05-11 14:01] LABS: BASO # 0.1 10^3/uL (0.0-0.2); EOS # 0.1 10^3/uL (0.0-0.5); EOS % 2.3 % (0.0-3.0); HEMATOCRIT 43.4 % (36.0-47.0); HEMOGLOBIN 14.9 g/dl (12.0-15.5); LYMPH # 1.6 10^3/uL (1.5-5.0); LYMPH % 31.7 % (24.0-44.0); MEAN CORPUSCULAR HEMOGLOBIN 35.6 pg (27.0-33.0); MEAN CORPUSCULAR HGB CONC 34.3 g/dl (32.0-36.5); MEAN CORPUSCULAR VOLUME 103.8 fl (80.0-96.0); MONO # 0.5 10^3/uL (0.0-0.8); MONO % 10.3 % (2.0-8.0); NEUTROPHILS # 2.8 10^3/uL (1.5-8.5); NEUTROPHILS % 54.3 % (36.0-66.0); PLATELET COUNT, AUTOMATED 254 10^3/uL (150-450); RED BLOOD COUNT 4.18 10^6/uL (4.00-5.40); WHITE BLOOD COUNT 5.1 10^3/uL (4.0-10.0)
[2022-05-11 14:35] LABS: ERYTHROCYTE SEDIMENTATION RATE 11 mm/hr (0-30)
[2022-05-11 14:52] LABS: APPEARANCE, URINE MANUAL HAZY (CLEAR); COLOR, URINE MANUAL YELLOW (YELLOW)
[2022-05-11 14:55] LABS: BILIRUBIN, URINE MANUAL NEGATIVE (NEGATIVE); BLOOD URINE MANUAL TRACE (NEGATIVE); GLUCOSE, URINE (UA) MANUAL NEGATIVE (NEGATIVE); KETONE, URINE MANUAL NEGATIVE (NEGATIVE); LEUKOCYTE ESTERASE, URINE MAN POSITIVE (NEGATIVE); NITRITE, URINE MANUAL NEGATIVE (NEGATIVE); PROTEIN, URINE MANUAL 1+ mg/dL (NEGATIVE); UROBILINOGEN, URINE MANUAL NORMAL (NORMAL)
[2022-05-11 15:11] LABS: TOTAL PROTEIN,RANDOM URINE 42.8 MG/DL (0.0-12.0)
[2022-05-11 15:16] LABS: ALBUMIN 3.9 GM/DL (3.2-5.2); ALT/SGPT 34 U/L (12-78); BILIRUBIN,TOTAL 0.6 MG/DL (0.2-1.0); BLOOD UREA NITROGEN 7 MG/DL (7-18); C REACTIVE PROTEIN QUANTITATIV 0.42 MG/DL (0.00-0.30); CALCIUM LEVEL 9.4 MG/DL (8.5-10.1); CARBON DIOXIDE LEVEL 26 MEQ/L (21-32); CHLORIDE LEVEL 106 MEQ/L (98-107); COMPLEMENT C3 125 MG/DL (90-180); COMPLEMENT C4 36 MG/DL (10-40); CREATININE FOR GFR 0.85 MG/DL (0.55-1.30); GLOMERULAR FILTRATION RATE > 60.0 (>51); GLUCOSE, FASTING 107 MG/DL (70-100); POTASSIUM SERUM 3.6 MEQ/L (3.5-5.1); SODIUM LEVEL 137 MEQ/L (136-145); TOTAL PROTEIN 7.5 GM/DL (6.4-8.2)
[2022-05-11 16:07] LABS: BACTERIA, URINE LARGE AMOUNT; SQUAMOUS EPITHELIAL CELL URINE LARGE AMOUNT /hpf (SMALL AMT); WBC, URINE TNTC /hpf (0-3)
[2022-05-11 16:08] LABS: HYALINE CAST, URINE NONE SEEN /lpf (0-1)
== END ==
LOC: M PLALAB 11:43
PROVIDERS: ATTEND Internal Medicine Rheumatology
DX: M35.01 Sjogren syndrome with keratoconjunctivitis (principal); R76.8 Other specified abnormal immunological findings in serum; M35.3 Polymyalgia rheumatica; E06.3 Autoimmune thyroiditis; Z79.899 Other long term (current) drug therapy

== ENCOUNTER → 2022-05-13 | Outpatient (REF) | payer BC, OTHER ==
[2022-05-13 22:02] LABS: APPEARANCE, URINE MANUAL HAZY (CLEAR); COLOR, URINE MANUAL DK YELLOW (YELLOW)
[2022-05-13 22:03] LABS: BILIRUBIN, URINE MANUAL NEGATIVE (NEGATIVE); BLOOD URINE MANUAL NEGATIVE (NEGATIVE); GLUCOSE, URINE (UA) MANUAL NEGATIVE (NEGATIVE); KETONE, URINE MANUAL NEGATIVE (NEGATIVE); LEUKOCYTE ESTERASE, URINE MAN POSITIVE (NEGATIVE); NITRITE, URINE MANUAL POSITIVE (NEGATIVE); PROTEIN, URINE MANUAL NEGATIVE (NEGATIVE); UROBILINOGEN, URINE MANUAL NORMAL (NORMAL)
[2022-05-13 22:26] LABS: BACTERIA, URINE LARGE AMOUNT; HYALINE CAST, URINE NONE SEEN /lpf (0-1); MUCUS, URINE LARGE AMOUNT (NEGATIVE); RBC, URINE 0-1 /hpf (0-3); SQUAMOUS EPITHELIAL CELL URINE SMALL AMOUNT /hpf (SMALL AMT)
== END ==
LOC: M LAB REF 21:12
PROVIDERS: ATTEND Physician Assistant
DX: N39.0 Urinary tract infection, site not specified (principal)

== ENCOUNTER → 2022-06-23 | Outpatient (REF) | payer OTHER, BC ==
[2022-06-23 21:42] LABS: APPEARANCE, URINE MANUAL CLEAR (CLEAR); COLOR, URINE MANUAL YELLOW (YELLOW)
[2022-06-23 21:43] LABS: SPECIFIC GRAVITY,URINE MANUAL 1.025 (1.002-1.035)
[2022-06-23 21:44] LABS: BILIRUBIN, URINE MANUAL 1+ (NEGATIVE); BLOOD URINE MANUAL NEGATIVE (NEGATIVE); GLUCOSE, URINE (UA) MANUAL NEGATIVE (NEGATIVE); KETONE, URINE MANUAL NEGATIVE (NEGATIVE); LEUKOCYTE ESTERASE, URINE MAN TRACE (NEGATIVE); NITRITE, URINE MANUAL NEGATIVE (NEGATIVE); PROTEIN, URINE MANUAL NEGATIVE (NEGATIVE); UROBILINOGEN, URINE MANUAL NORMAL (NORMAL)
[2022-06-23 22:04] LABS: BACTERIA, URINE MOD AMOUNT; HYALINE CAST, URINE NONE SEEN /lpf (0-1); MUCUS, URINE LARGE AMOUNT (NEGATIVE); SQUAMOUS EPITHELIAL CELL URINE MOD AMOUNT /hpf (SMALL AMT)
[2022-06-23 22:05] LABS: CALCIUM OXALATE CRYSTALS,URINE SMALL AMOUNT /hpf
== END ==
LOC: M LAB REF 21:16
PROVIDERS: ATTEND Physician Assistant Medical
DX: N39.0 Urinary tract infection, site not specified (principal)

== ENCOUNTER → 2023-01-26 | Outpatient (REF) | payer OTHER ==
[2023-01-26 13:44] LABS: BASO # 0.1 10^3/uL (0.0-0.2); BASO % 0.9 % (0.0-1.0); EOS # 0.1 10^3/uL (0.0-0.5); HEMATOCRIT 41.6 % (36.0-47.0); HEMOGLOBIN 14.7 g/dl (12.0-15.5); LYMPH # 1.6 10^3/uL (1.5-5.0); LYMPH % 23.6 % (24.0-44.0); MEAN CORPUSCULAR HEMOGLOBIN 35.3 pg (27.0-33.0); MEAN CORPUSCULAR HGB CONC 35.3 g/dl (32.0-36.5); MEAN CORPUSCULAR VOLUME 99.8 fl (80.0-96.0); MONO # 0.5 10^3/uL (0.0-0.8); MONO % 7.5 % (2.0-8.0); NEUTROPHILS # 4.3 10^3/uL (1.5-8.5); NEUTROPHILS % 65.7 % (36.0-66.0); PLATELET COUNT, AUTOMATED 233 10^3/uL (150-450); RED BLOOD COUNT 4.17 10^6/uL (4.00-5.40); WHITE BLOOD COUNT 6.6 10^3/uL (4.0-10.0)
[2023-01-26 13:50] LABS: AMORPHOUS SEDIMENT LARGE (NEGATIVE); APPEARANCE, URINE TURBID (CLEAR); BACTERIA, URINE AUTO NEGATIVE (NEGATIVE); BILIRUBIN, URINE AUTO NEGATIVE (NEGATIVE); BLOOD, URINE BLOOD NEGATIVE (NEGATIVE); COLOR, URINE RED (YELLOW); GLUCOSE, URINE (UA) AUTO NEGATIVE (NEGATIVE); KETONE, URINE AUTO NEGATIVE (NEGATIVE); LEUKOCYTE ESTERASE, URINE AUTO NEGATIVE (NEGATIVE); MUCUS, URINE LARGE (NEGATIVE); NITRITE, URINE AUTO NEGATIVE (NEGATIVE); PROTEIN, URINE AUTO NEGATIVE (NEGATIVE); RBC, URINE AUTO 0 /HPF (0-3); SPECIFIC GRAVITY URINE AUTO 1.018 (1.002-1.035); SQUAMOUS EPITHELIAL CELL UR AU 0 /HPF (0-6); UROBILINOGEN, URINE AUTO 0.2 mg/dL (0.0-2.0); WBC, URINE AUTO 0 /HPF (0-3)
[2023-01-26 14:14] LABS: TOTAL PROTEIN,RANDOM URINE 88.8 MG/DL (0.0-14.0)
[2023-01-26 14:16] LABS: C REACTIVE PROTEIN QUANTITATIV < 0.40 MG/DL (<1.0)
[2023-01-26 14:17] LABS: ALBUMIN 4.1 G/DL (3.2-5.2); ALKALINE PHOSPHATASE 100 U/L (46-116); ALT/SGPT 29 U/L (7.0-40); AST/SGOT 24 U/L (<34); BILIRUBIN,TOTAL 0.8 MG/DL (0.3-1.2); BLOOD UREA NITROGEN 9 MG/DL (9-23); CARBON DIOXIDE LEVEL 25 MMOL/L (20-31); CHLORIDE LEVEL 108 MMOL/L (98-107); COMPLEMENT C3 151.2 MG/DL (90.0-170.0); COMPLEMENT C4 36.5 MG/DL (12-36); GLOMERULAR FILTRATION RATE > 60.0 (>51); GLUCOSE, FASTING 100 MG/DL (60-100); POTASSIUM SERUM 3.6 MMOL/L (3.5-5.1); SODIUM LEVEL 141 MMOL/L (136-145)
[2023-01-26 15:01] LABS: ERYTHROCYTE SEDIMENTATION RATE 15 mm/hr (0-30)
== END ==
LOC: M SFHCADAM 09:31
PROVIDERS: ATTEND Internal Medicine Rheumatology
DX: M35.01 Sjogren syndrome with keratoconjunctivitis (principal); R76.8 Other specified abnormal immunological findings in serum; M35.3 Polymyalgia rheumatica; Z72.0 Tobacco use; E06.3 Autoimmune thyroiditis; Z79.899 Other long term (current) drug therapy

== ENCOUNTER → 2023-09-10 | Outpatient (REF) | payer BC, OTHER ==
[2023-09-10 12:17] LABS: APPEARANCE, URINE MANUAL CLOUDY (CLEAR); COLOR, URINE MANUAL YELLOW (YELLOW); SPECIFIC GRAVITY,URINE MANUAL 1.025 (1.002-1.035)
[2023-09-10 12:18] LABS: BILIRUBIN, URINE MANUAL NEGATIVE (NEGATIVE); BLOOD URINE MANUAL TRACE (NEGATIVE); GLUCOSE, URINE (UA) MANUAL NEGATIVE (NEGATIVE); KETONE, URINE MANUAL NEGATIVE (NEGATIVE); LEUKOCYTE ESTERASE, URINE MAN NEGATIVE (NEGATIVE); NITRITE, URINE MANUAL NEGATIVE (NEGATIVE); PROTEIN, URINE MANUAL TRACE mg/dL (NEGATIVE); UROBILINOGEN, URINE MANUAL NORMAL (NORMAL)
[2023-09-10 12:42] LABS: TOTAL PROTEIN,RANDOM URINE 31.3 MG/DL (0.0-14.0)
[2023-09-10 12:47] LABS: BACTERIA, URINE MOD AMOUNT; CREATININE,RANDOM URINE 188.7 MG/DL; RBC, URINE 0-1 /hpf (0-3); SQUAMOUS EPITHELIAL CELL URINE LARGE AMOUNT /hpf (SMALL AMT); WBC, URINE 0-1 /hpf (0-3)
[2023-09-10 12:49] LABS: AMORPHOUS SEDIMENT, URINE LARGE AMOUNT (NEGATIVE); HYALINE CAST, URINE NONE SEEN /lpf (0-1); MUCUS, URINE MOD AMOUNT (NEGATIVE)
[2023-09-10 13:37] LABS: BASO # 0.1 10^3/uL (0.0-0.2); BASO % 1.4 % (0.0-1.0); EOS # 0.2 10^3/uL (0.0-0.5); EOS % 3.9 % (0.0-3.0); HEMATOCRIT 43.7 % (36.0-47.0); HEMOGLOBIN 15.1 g/dl (12.0-15.5); LYMPH # 1.7 10^3/uL (1.5-5.0); LYMPH % 34.1 % (24.0-44.0); MEAN CORPUSCULAR HEMOGLOBIN 36.5 pg (27.0-33.0); MEAN CORPUSCULAR HGB CONC 34.6 g/dl (32.0-36.5); MEAN CORPUSCULAR VOLUME 105.6 fl (80.0-96.0); MONO # 0.4 10^3/uL (0.0-0.8); MONO % 7.3 % (2.0-8.0); NEUTROPHILS # 2.7 10^3/uL (1.5-8.5); NEUTROPHILS % 53.1 % (36.0-66.0); PLATELET COUNT, AUTOMATED 264 10^3/uL (150-450); RED BLOOD COUNT 4.14 10^6/uL (4.00-5.40); WHITE BLOOD COUNT 5.1 10^3/uL (4.0-10.0)
[2023-09-10 13:42] LABS: ERYTHROCYTE SEDIMENTATION RATE 21 mm/hr (0-30)
[2023-09-10 14:07] LABS: C REACTIVE PROTEIN QUANTITATIV < 0.40 MG/DL (<1.0)
[2023-09-10 14:09] LABS: ALBUMIN 3.9 G/DL (3.2-5.2); ALKALINE PHOSPHATASE 93 U/L (46-116); ALT/SGPT 24 U/L (7.0-40); AST/SGOT 21 U/L (<34); BILIRUBIN,TOTAL 0.8 MG/DL (0.3-1.2); BLOOD UREA NITROGEN 12 MG/DL (9-23); CALCIUM LEVEL 9.3 MG/DL (8.5-10.1); CARBON DIOXIDE LEVEL 28 MMOL/L (20-31); CHLORIDE LEVEL 106 MMOL/L (98-107); COMPLEMENT C3 148.3 MG/DL (90.0-170.0); CREATININE FOR GFR 0.79 MG/DL (0.55-1.30); GLOMERULAR FILTRATION RATE > 60.0 (>51); GLUCOSE, FASTING 87 MG/DL (60-100); POTASSIUM SERUM 3.9 MMOL/L (3.5-5.1); SODIUM LEVEL 140 MMOL/L (136-145)
[2023-09-10 14:10] LABS: COMPLEMENT C4 34.5 MG/DL (12-36)
== END ==
LOC: M SFHCRHEU 08:03
PROVIDERS: ATTEND Internal Medicine Rheumatology
DX: M35.01 Sjogren syndrome with keratoconjunctivitis (principal); R76.8 Other specified abnormal immunological findings in serum; M35.3 Polymyalgia rheumatica; Z72.0 Tobacco use; E06.3 Autoimmune thyroiditis; Z79.899 Other long term (current) drug therapy

== ENCOUNTER → 2024-03-15 | Outpatient (REF) | payer BC ==
[~2024-03-15] MED LIST changes: +ONDA-282 PO; -ONDA4TAB6 PO
[2024-03-15 13:38] LABS: BASO # 0.1 10^3/uL (0.0-0.2); BASO % 1.3 % (0.0-1.0); EOS # 0.2 10^3/uL (0.0-0.5); EOS % 3.5 % (0.0-3.0); HEMATOCRIT 41.6 % (36.0-47.0); HEMOGLOBIN 14.1 g/dl (12.0-15.5); LYMPH # 1.4 10^3/uL (1.5-5.0); MEAN CORPUSCULAR HEMOGLOBIN 34.9 pg (27.0-33.0); MEAN CORPUSCULAR HGB CONC 33.9 g/dl (32.0-36.5); MONO # 0.4 10^3/uL (0.0-0.8); NEUTROPHILS # 2.6 10^3/uL (1.5-8.5); NEUTROPHILS % 55.8 % (36.0-66.0); PLATELET COUNT, AUTOMATED 202 10^3/uL (150-450); RED BLOOD COUNT 4.04 10^6/uL (4.00-5.40); WHITE BLOOD COUNT 4.6 10^3/uL (4.0-10.0)
[2024-03-15 13:42] LABS: C REACTIVE PROTEIN QUANTITATIV < 0.40 MG/DL (<1.0)
[2024-03-15 13:44] LABS: ALBUMIN 3.8 G/DL (3.2-5.2); ALKALINE PHOSPHATASE 86 U/L (46-116); ALT/SGPT 28 U/L (7.0-40); AST/SGOT 23 U/L (<34); BILIRUBIN,TOTAL 0.7 MG/DL (0.3-1.2); BLOOD UREA NITROGEN 12 MG/DL (9-23); CALCIUM LEVEL 9.1 MG/DL (8.5-10.1); CARBON DIOXIDE LEVEL 27 MMOL/L (20-31); CHLORIDE LEVEL 108 MMOL/L (98-107); CREATININE FOR GFR 0.83 MG/DL (0.55-1.30); GLOMERULAR FILTRATION RATE > 60.0 (>51); GLUCOSE, FASTING 87 MG/DL (60-100); POTASSIUM SERUM 3.7 MMOL/L (3.5-5.1); SODIUM LEVEL 139 MMOL/L (136-145)
[2024-03-15 13:50] LABS: ERYTHROCYTE SEDIMENTATION RATE 11 mm/hr (0-30)
== END ==
LOC: M SFHCRHEU 08:15
PROVIDERS: ATTEND Internal Medicine Rheumatology
DX: R76.8 Other specified abnormal immunological findings in serum (principal); M35.01 Sjogren syndrome with keratoconjunctivitis; M35.3 Polymyalgia rheumatica; Z72.0 Tobacco use; E06.3 Autoimmune thyroiditis

== ENCOUNTER → 2024-05-26 | Outpatient (CLI) | payer BC | LOC: M PLAIMG 12:54 | PROVIDERS: ATTEND Internal Medicine | DX: R06.02 Shortness of breath (principal) ==

== ENCOUNTER → 2025-06-05 | Outpatient (REF) | payer BC ==
[2025-06-05 15:45] LABS: APPEARANCE, URINE MANUAL TURBID (CLEAR); COLOR, URINE MANUAL YELLOW (YELLOW)
[2025-06-05 15:46] LABS: BILIRUBIN, URINE MANUAL NEGATIVE (NEGATIVE); GLUCOSE, URINE (UA) MANUAL NEGATIVE (NEGATIVE); KETONE, URINE MANUAL NEGATIVE (NEGATIVE); NITRITE, URINE MANUAL NEGATIVE (NEGATIVE); PH,URINE MAN 5.0 UNITS (5.0 - 7.0); PROTEIN, URINE MANUAL NEGATIVE (NEGATIVE); SPECIFIC GRAVITY,URINE MANUAL 1.020 (1.002-1.035); UROBILINOGEN, URINE MANUAL NORMAL (NORMAL)
[2025-06-05 15:47] LABS: BLOOD URINE MANUAL NEGATIVE (NEGATIVE); LEUKOCYTE ESTERASE, URINE MAN TRACE (NEGATIVE)
[2025-06-05 16:03] LABS: C REACTIVE PROTEIN QUANTITATIV < 0.50 MG/DL (<1.0)
[2025-06-05 16:04] LABS: ALT/SGPT 24 U/L (7.0-40); AST/SGOT 25 U/L (<34); CALCIUM LEVEL 9.2 MG/DL (8.5-10.1); CARBON DIOXIDE LEVEL 28 MMOL/L (20-31); CHLORIDE LEVEL 102 MMOL/L (98-107); COMPLEMENT C4 35.6 MG/DL (12-36); CREATININE FOR GFR 0.81 MG/DL (0.55-1.30); GLOMERULAR FILTRATION RATE 84.1 (>51); POTASSIUM SERUM 3.7 MMOL/L (3.5-5.1); SODIUM LEVEL 139 MMOL/L (136-145)
[2025-06-05 16:09] LABS: BASO # 0.1 10^3/uL (0.0-0.2); BASO % 1.0 % (0.0-1.0); EOS # 0.1 10^3/uL (0.0-0.5); EOS % 0.8 % (0.0-3.0); LYMPH # 1.8 10^3/uL (1.5-5.0); LYMPH % 29.3 % (24.0-44.0); MONO # 0.4 10^3/uL (0.0-0.8); MONO % 5.9 % (2.0-8.0); NEUTROPHILS # 3.9 10^3/uL (1.5-8.5); NEUTROPHILS % 62.7 % (36.0-66.0); PLATELET COUNT, AUTOMATED 270 10^3/uL (150-450); TOTAL PROTEIN,RANDOM URINE 29.3 MG/DL (0.0-14.0)
[2025-06-05 16:15] LABS: RBC, URINE NONE SEEN /hpf (0-3); SQUAMOUS EPITHELIAL CELL URINE NONE SEEN /hpf (SMALL AMT); WBC, URINE 0-1 /hpf (0-3)
[2025-06-05 16:16] LABS: AMORPHOUS SEDIMENT, URINE LARGE AMOUNT (NEGATIVE); BACTERIA, URINE NONE SEEN
[2025-06-05 16:17] LABS: HYALINE CAST, URINE NONE SEEN /lpf (0-1)
== END ==
LOC: M SFHCRHEU 11:30
PROVIDERS: ATTEND Internal Medicine Rheumatology
DX: M35.01 Sjogren syndrome with keratoconjunctivitis (principal)

== ENCOUNTER → 2025-06-15 | Outpatient (CLI) | payer BC | LOC: M RAD 08:11 | PROVIDERS: ATTEND Internal Medicine Rheumatology | DX: M35.01 Sjogren syndrome with keratoconjunctivitis (principal) ==